=== PATIENT | female | born 1995 | race Caucasian/White ===

== ENCOUNTER 2024-02-03 20:01 | Emergency (ER) | payer OTHER, SELFPAY ==
[2024-02-03 20:19] VITALS: BP 127/82
[2024-02-03 20:44] LABS: % Basophils 0.7 % (0-2); % Eosinophils 5.4 % (0-6); % Immature Granulocytes 0.6 % (0-0.5); % Lymphocytes 45.2 % (20.5-51.1); % Neutrophils 40.1 % (42.2-75.2); Absolute Eosinophils 0.3 10^3/uL (0-0.7); Absolute Lymphocytes 2.4 10^3/uL (1.2-3.4); Absolute Monocytes 0.4 10^3/uL (0.1-0.6); Absolute Neutrophils 2.2 10^3/uL (1.4-6.5); Hematocrit 33.7 % (37.0-47.0); Mean Corp Hgb Conc. 32.6 g/dL (33.0-37.0); Mean Corpuscular Hgb 26.6 pg (27.0-31.0); Mean Corpuscular Volume 81.6 fL (81.0-99.0); Mean Platelet Volume 10.6 fL (7.4-10.4); Nucleated Red Blood Cells % 0 %; Platelet Count 223 10^3/uL (130-400); Red Blood Cell Count 4.13 10^6/uL (4.20-5.40); Red Cell Dist. Width 16.8 % (11.5-14.5); White Blood Cell Count 5.4 10^3/uL (4.8-10.8)
[2024-02-03 20:52] LABS: HCG, Serum Qualitative Screen Negative
[2024-02-03 21:01] LABS: ALT (SGPT) 18 U/L (0-35); AST (SGOT) 31 U/L (14-36); Albumin 4.8 g/dl (3.5-5.0); Alkaline Phosphatase 115 U/L (38-126); Blood Urea Nitrogen 15 mg/dl (7-17); Calcium 10.2 mg/dl (8.4-10.2); Carbon Dioxide 26 mmol/L (22-30); Chloride 98 mmol/L (98-107); Glucose 110 mg/dl (70-99); Potassium 4.2 mmol/L (3.5-5.1); Sodium 134 mmol/L (135-145); Total Bilirubin 0.3 mg/dl (0.2-1.3); Total Protein 7.8 g/dl (6.3-8.2); eGFR > 60.00
--- NOTE | 2024-02-03 22:31 | ED.GENMED ---
History of Present Illness
General
Chief Complaint: Dental Problem
Source: patient
Exam Limitations: none
Time Seen by Provider: 02/03/24 22:20
Travel History
Have you had any contact with someone who has COVID-19?: No
Do you have any symptoms of coronavirus? Fever > 100 degrees, chills, cough, shortness of breath, sore throat, loss of taste or smell, muscle aches, or headache?: No
History of Present Illness
History of Present Illness:
This is a 28 year old female that comes in with c/o facial swelling. States that she started on with a sore mouth. States that on Friday she started with left sided facial swelling. States that the swelling was worse on Friday and
involved her eye. States that she went to on Friday and was given Augmentin. State that she called the PCP today as she is still swollen but it has gone down considerable. States that she has pain under the left cheek bone and it hurts when she
bits down. Patient took Ibuprofen at 7pm. States that she has had some nausea and diarrhea. Denies any fever, chills, chest pain, SOB, abd pain, vomiting, headache, dizziness, urinary burning.
Past History
Past History
ED Past Medical History: Arrthythmia (Torsades), Asthma, Psychiatric (Anxiety, Depression) and Other (Concussion, Pancreatitis, history of Substance abuse, )
ED Past Surgical History: Gynecological () and Other (Pancreatic stent)
Social History
Tobacco: Smoker
Alcohol: None
Drug: Marijuana
Personal: Single
Living: with family
Review of Systems
Review of Systems
All Other Systems: ROS reviewed and negative except as documented in HPI and ROS
Constitutional: Reports no symptoms; Denies fever or chills
EENT: Reports mouth pain (left sided with facial swelling)
Respiratory: Reports no symptoms; Denies cough or trouble breathing
Cardiac: Reports no symptoms
ABD/GI: Reports nausea and diarrhea; Denies abdominal pain or vomiting
: Reports no symptoms; Denies dysuria, frequency or urgency
Musculoskeletal: Reports no symptoms
Skin: Reports no symptoms
Neurological: Reports no symptoms; Denies dizzy or headache
Psychiatric: Reports no symptoms
Phy Exam
General Physical Exam
General Presentation: mild distress
General age: appears stated age
General Skin: warm and dry
General Habitus: normal
General Mental: alert
General Hydration: appears well hydrated
ENT Exam
ENT Exam: TM's normal, pharynx normal, neck supple and other (left sided facial swelling noted on the left cheek bone. Slight redness noted on the upper gum line)
Eye Exam
Eye Exam: EOMI
Cardiovascular Exam
Cardiovascular Exam: regular rate/rhythm, no edema, no murmur and normal peripheral pulses
Pulmonary Exam
Pulmonary Exam: lungs clear, no respiratory distress, no rales, chest non tender, no crackles, no rhonchi, no wheezing and no cough
Gastrointestinal Exam
Gastrointestinal Exam: normal bowel sounds, non tender, soft, no organomegaly, no pulsatile mass and non distended
Musculoskeletal Exam
Musculoskeletal Exam: full ROM and no edema
Skin Exam
Skin Exam: normal color, warm/dry, no rash and no petechia
Psychiatric Exam
Psychiatric Exam: normal mood/affect
Course
Orders/Labs/Results
Orders:
Orders
02/03/24 20:28
[address] Bones w Contrast CT [CT Facial Bones W/ Iv Contrast] Urgent
Comment:
Reason For Exam: left facial swelling infected tooth
02/03/24 20:29
Test Result ONCE
02/03/24 20:36
CMP [Comprehensive Metabolic Panel] Urgent
Complete Blood Count/With Diff Urgent
HCG, Serum Qualitative Screen Urgent
02/03/24 22:31
Acetaminophen [Tylenol] 1,000 mg PO NOW STA
Abnormal Lab Results
02/03/24
20:36
RBC 4.13 L 10^6/uL
(4.20-5.40)
Hgb 11.0 L g/dL
(12.0-16.0)
Hct 33.7 L %
(37.0-47.0)
MCH 26.6 L pg
(27.0-31.0)
MCHC 32.6 L g/dL
(33.0-37.0)
RDW 16.8 H %
(11.5-14.5)
MPV 10.6 H fL
(7.4-10.4)
Immature Gran % 0.6 H %
(0-0.5)
Neutrophils % 40.1 L %
(42.2-75.2)
Sodium 134 L mmol/L
(135-145)
Glucose 110 H mg/dl
(70-99)
02/03/24 20:36
02/03/24 20:36
H/H slightly low. Glucose nonfasting. HCG negative
Vital Signs
Initial and Last Documented VS:
Initial Vital Signs
Temp Pulse Resp BP Pulse Ox
98.7 F 81 18 127/82 100
02/03/24 20:19 02/03/24 20:19 02/03/24 20:19 02/03/24 20:19 02/03/24 20:19
Last Documented Vital Signs
Temp Pulse Resp BP Pulse Ox
98.7 F 80 18 146/89 99
02/03/24 20:19 02/03/24 23:05 02/03/24 23:05 02/03/24 23:05 02/03/24 23:05
MDM/Problems Addressed
Differential Diagnosis Includes:
Dental abscess, Sinus infection
MDM/Problems Addressed:
This is a 28 year old female that comes in with c/o left sided facial swelling. States that this started on [place] and got worse over the weekend. Patient was seen at and started on antibiotics. States that the swelling has gone down but she has
pain and still slight swelling. States that her PCP wants her to have a CT scan.
Will check labs and get CT scan.
Back into see patient. Explained that there is no abscess but she has dental caries in 4 of her teeth. Explained that she needs to see the dentist to have fillings. Explained that she can continue with the antibiotics as directed if she would like.
Alternate with Tylenol and Ibuprofen for pain. Return with any concerns.
Chronic conditions affecting care:
NA
Acute Exacerbation and/or Progression of Chronic Illness:
NA
*Radiology
Radiology exam reviewed: radiology read reviewed (facial CT-Dental caries s described. No absces formation identified. )
*Pulse Oximetry
Patient hypoxic: no
*EKG
Interpreted by ED Provider?: NA
Rate: EKG- N/A
*Stave Saw Operator Interpretation
Rate: Stave Saw Operator- N/A
*Critical Care Note
Total Time (30-74mins, 75-104mins- exclusive of procedures): Not Applicable
ED Attending Note
-
Portions of this chart may have been created with voice recognition software.� Occasional wrong word or��sound alike� substitutions may have occurred due to the inherent limitations of voice recognition software.
Discharge Plan
Departure
Patient Disposition: Home (Routine Discharge)
Date of Disposition: 02/03/24
Time of Disposition: 23:48
Patient with high blood pressure during this ER visit?: Yes
Condition: Good
Covid-19: Not Applicable
Discharge Problem:
Dental caries
Instructions: Dental Pain (DC), BLOOD PRESSURE
Prescriptions:
No Action
magnesium oxide 500 mg Tablet
500 mg PO DAILY Qty: 30 0RF
acetaminophen 325 mg Tablet
650 mg PO Q6HPRN PRN (Reason: mild pain/ fever>100.5F) Qty: 90 0RF
pantoprazole 40 mg Tablet,Delayed Release (Dr/Ec)
40 mg PO BID Qty: 60 0RF
gabapentin 300 mg Capsule
300 mg PO TID Qty: 90 0RF
metoprolol succinate 25 mg Tablet Extended Release 24 Hr
25 mg PO DAILY Qty: 30 0RF
sertraline 25 mg Tablet
25 mg PO DAILY Qty: 30 0RF
Referrals:
Digna Burton DO [Family Provider] -
Activity Restrictions/Additional Instructions:
As discussed, your blood work is normal. Your CT shows that you have no abscess but you have dental caries in 4 of your teeth. Please follow up with your dentist for further treatment. You may use Tylenol and Ibuprofen for pain. Ice to help with
pain control. IF YOU HAVE ANY OTHER CONCERNS PLEASE RETURN TO THE EMERGENCY ROOM.
Interventions
Interventions:
*Risk Screen - Suicide Last Done: 02/03/24 20:19
*General Assessment Last Done: 02/03/24 20:19
*Neglect/Abuse Screening Last Done: 02/03/24 20:19
ED- Fall Risk Assessment Last Done: 02/03/24 23:13
*ED COVID-19 Vaccine History Last Done: 02/03/24 20:19
Discharge Date and Time
Print Language: WOLOF
[2024-02-03] MEDS: TYLENOL 1000 MG PO (22:52)
[2024-02-03 23:05] VITALS: BP 146/89
[2024-02-03 23:08] VITALS: BMI 31.3
[2024-02-04] VITALS: BP 138/68
== END 2024-02-04 00:02 | disposition home or self-care (01) ==
LOC: EMR 20:01
PROVIDERS: Emergency Medicine; EMERGENCY PHYSICIAN Emergency Medicine; FAMILY PHYSICIAN Family Medicine
DX: K02.9 Dental caries, unspecified (principal); I47.21 Torsades de pointes; J45.909 Unspecified asthma, uncomplicated; F41.8 Other specified anxiety disorders; F17.200 Nicotine dependence, unspecified, uncomplicated
CPT/HCPCS: 99284; 70487; 80053; 84703; 85025; Q9967

== ENCOUNTER → 2024-03-16 09:29 | Outpatient (REF) | payer OTHER, SELFPAY | LOC: HWRAD 09:29 | PROVIDERS: ATTENDING PHYSICIAN Internal Medicine Gastroenterology; FAMILY PHYSICIAN Family Medicine | DX: R10.9 Unspecified abdominal pain (principal) | CPT/HCPCS: 74160; Q9967 ==

== ENCOUNTER 2024-04-22 06:35 | Day surgery (SDC) | payer OTHER, SELFPAY ==
[2024-04-22] VITALS (16 sets, daily range): BP systolic 112–176; BP diastolic 77–138; BMI 27.3
[2024-04-22] MEDS: TYLENOL 1000 MG PO (16:09)
--- NOTE | 2024-04-22 17:31 | HPS.HSE ---
Family Physician
-
Family Physician: NO INTERVIEW UNKNOWN
Chief Complaint
-
abd pain/nausea post EGD
History of Present Illness
Patient is a 28F with past medical history of essential HTN, neuropathy, GERD, Depression, necrotizing pancreatitis with pancreatic duct stenting, alcohol abuse, h/o marijuana use, h/o DVT was brought in for elective EGD and pancreatic duct stent
removal. Post procedure patient is having significant abdominal pain and nausea. Patient was seen in recovery room and was in intractable pain, patient was having diffuse upper abdominal pain with nausea. No vomiting. Patient was tearful from
pain. Abdominal examination relatively benign at this point. Patient denies any other ongoing problems of shortness of breath/chest pain/palpitation.
Patient being admitted to hospital for overnight monitoring and pain control
Medical History
Past Medical History
Past Medical History: Reports Other
Additional Past Medical History:
essential HTN, neuropathy, GERD, Depression, necrotizing pancreatitis with pancreatic duct stenting, alcohol abuse, h/o marijuana use, h/o DVT
Past Surgical History: Reports Other
Social History
Tobacco: Non-smoker
Alcohol: Occasional
Drug: Marijuana
Family History
Family History: Not pertinent
Allergies / Home Medications
Allergies reflects when Allergies were last updated in [facility].
Home Medications with original date entered in [employer]
Allergy/Medication List:
Allergies
Allergy/AdvReac Type Severity Reaction Status Date / Time
No Known Allergies Allergy Verified 04/22/24 13:49
Home Medications
acetaminophen 325 mg tablet 650 mg (2 x 325 mg) PO Q6HPRN PRN mild pain/ fever>100.5F #90 tabs 06/24/23
magnesium oxide 500 mg PO DAILY #30 tabs 06/24/23
metoprolol succinate 25 mg tablet,extended release 24 hr 25 mg PO DAILY #30 tabs 06/24/23
pantoprazole 40 mg tablet,delayed release 40 mg PO BID #60 tabs 06/24/23
sertraline 25 mg tablet 25 mg PO DAILY #30 tabs 08/08/23
gabapentin 300 mg capsule 600 mg PO TID 04/22/24
ebpywthgfxwf-bcxvy-cpnroemmhij tablet 1 tab PO 04/22/24
Review of Systems
-
A 12 point ROS was completed and negative except as noted: Yes
Physical Exam
Vital Signs
Vital Signs
Temp Pulse Resp BP Pulse Ox
98.0 F 96 17 138/93 97
04/22/24 15:19 04/22/24 16:15 04/22/24 16:15 04/22/24 16:15 04/22/24 16:15
Physical Exam
General: Appears in Distress (Pain) and Pain
HEENT: Moist mucous membranes and Atraumatic
Respiratory: Clear
Cardiac: S1/S2 and Regular Rhythm; No Murmur or Rub
GI: Soft, Non Distended, Normal Bowel Sounds and Tender (upper abd); No Organomegaly
Skin: No Rash
Neuro: Awake, Alert, Oriented and Nonfocal/grossly intact
Psych: Anxious
Impression/Plan
-
EGD 04/22
The examined esophagus was normal. No gross lesions were noted in the entire examined stomach. A previously placed pancreatic stent was seen in the ampulla. Stent removal was accomplished with a snare.
The duodenal bulb, first portion of the duodenum and second portion of the duodenum were normal.

1. Intractable abdominal pain
Nausea/vomiting
-Post EGD patient having intractable abdominal pain and distress and tearful
-Abdominal examination relatively benign except tenderness in upper abdomen, no guarding
-Emergent lab check CBC/CMP/lipase ordered
-Patient with history of recurrent pancreatitis and with pancreatic ductal stent removal today maintain n.p.o. and on IV fluids
-CT abdomen pelvis with IV contrast ordered
-Patient started on IV Dilaudid for pain control, hold dose for excessive sedation
-Monitor on telemetry overnight
-Admit under observation
-GI Consulted to follow
2. History of necrotizing pancreatitis
History of pancreatic duct stenting
-Removed today by interventional GI
-f/u CT a/p
3. Essential HTN
-maintain on metoprolol daily
History of alcohol use disorder
History of depression versus
History of substance use with amphetamine/morphine
History of ventricular tachycardia/torsades
DVT PPX -scd
Full code
Total time spent : 76 mins
I personally saw and examined the patient.
I have reviewed all diagnostic interpretations and treatment plans as written.
Time includes patient management by me, time spent at the patients bedside, time to review lab and imaging results, discussing patient care, documentation in the medical record, and time spent with the family or caregiver and discussing care plan
with RN/Consultants.
[2024-04-22] MEDS: DILAUDID 0.5 MG IV ×2 (17:44→21:07)
[2024-04-22 18:06] LABS: Hematocrit 32.4 % (37.0-47.0); Hemoglobin 11.2 g/dL (12.0-16.0); Mean Corp Hgb Conc. 34.6 g/dL (33.0-37.0); Mean Corpuscular Hgb 28.4 pg (27.0-31.0); Mean Platelet Volume 10.5 fL (7.4-10.4); Platelet Count 232 10^3/uL (130-400); Red Blood Cell Count 3.95 10^6/uL (4.20-5.40); Red Cell Dist. Width 15.3 % (11.5-14.5); White Blood Cell Count 7.1 10^3/uL (4.8-10.8)
--- NOTE | 2024-04-22 18:07 | PTCARENOTE ---
Pt continued to cry, report pain and intermittent nausea. Reached out to Dr. Forde who relayed information to Dr. Crocker who came to see pt. Orders pt MAR. Pt repositioned. Pt's mother @ bedside, stepped out to make phone calls at this time. Pt quietly
resting, continues on monitor, awaiting transfer to .
[2024-04-22 18:17] LABS: ALT (SGPT) 25 U/L (0-35); AST (SGOT) 46 U/L (14-36); Albumin 4.7 g/dl (3.5-5.0); Alkaline Phosphatase 145 U/L (38-126); Blood Urea Nitrogen 9 mg/dl (7-17); Calcium 9.7 mg/dl (8.4-10.2); Carbon Dioxide 23 mmol/L (22-30); Chloride 104 mmol/L (98-107); Estimated Creatinine Clearance 122 ml/min; Glucose 110 mg/dl (70-99); Lipase 779 U/L (23-300); Potassium 4.2 mmol/L (3.5-5.1); Sodium 137 mmol/L (135-145); Total Bilirubin 0.4 mg/dl (0.2-1.3); Total Protein 7.4 g/dl (6.3-8.2); eGFR > 60.00
--- NOTE | 2024-04-22 18:35 | PTCARENOTE ---
Pt continues to vomit, reaching out to hospitalist. Emesis is bilious/clear.
--- NOTE | 2024-04-22 18:58 | PTCARENOTE ---
Report called to [facility], departing shortly for 2S
[2024-04-22] MEDS: ZOFRAN 4 MG IV ×2 (19:10→23:27)
--- NOTE | 2024-04-22 19:52 | PTCARENOTE ---
Transferred on monitor with her mother at bedside.Arrived to unit, her nurse Leslie Esparza to receive her. Pt stated she felt shaky, pt's mother mentioned history of Prolonged (and wasn't she exactly what, said maybe QT), passed this information on
to RN and provider. Pt continued with vomiting during transport and upon arrival. Pt's belongs transferred with pt.
[2024-04-22] MEDS: ATIVAN 1 MG IV (20:13)
[2024-04-22] MEDS: COMPAZINE 10 MG IV (20:13)
[2024-04-22 20:31] LABS: HCG, Serum Qualitative Screen Negative
[2024-04-22] MEDS: NEURONTIN PO (21:53)
[2024-04-22] MEDS: NSS (PRESERVATIVE FREE) 0.5 ML IV (21:53)
[2024-04-22] MEDS: PHENERGAN 50.25 MG IV (21:53)
[2024-04-22] MEDS: NSS IV (21:58)
[2024-04-23] MEDS: DILAUDID 0.5 MG IV ×4 (00:07→09:27)
[2024-04-23] MEDS: TIGAN 200 MG IM (00:21)
--- NOTE | 2024-04-23 02:12 | PTCARENOTE ---
Pt. arrived to from GI lab at [address] over. Pt. helped to stand and pivot to room bed at which point pt. stated she felt like something was 'wrong' and stated 'I think I'm going to have a seizure.' No seizure hx noted in
chart and pt's mother stated pt. had a seizure during a prior visit to the ER and that the staff told her she had a 'long QT'. Pt. able to safely pivot to room bed without incident. Placed on tele at time of arrival. House DRIVER HELPER consulted and stat IV
Ativan and Compazine given - see MAR. Pt. then asking to sit in the shower stating that's what she does at home to help with anxiety. Pt. assisted to shower and felt more calm after. Around 2129 pt. states nausea was coming back and started vomiting
bile. House DRIVER HELPER contacted and IV Phenergan given with temporary relief of nausea - see MAR. Pt. able to sleep for a few hours before calling at 2330 to say nausea had resumed along with uncontrollable retching. House DRIVER HELPER in to see pt. at bedside and
IM Tigan given - see MAR. Pt. sleeping at time of writing. Will continue to monitor.
[2024-04-23 03:05] VITALS: BP 160/96
[2024-04-23] MEDS: NSS 1000 IV ×3 (03:09→20:45)
[2024-04-23 05:51] LABS: Hematocrit 31.5 % (37.0-47.0); Hemoglobin 10.4 g/dL (12.0-16.0); Mean Corpuscular Hgb 28.5 pg (27.0-31.0); Mean Corpuscular Volume 86.3 fL (81.0-99.0); Mean Platelet Volume 11.1 fL (7.4-10.4); Platelet Count 186 10^3/uL (130-400); Red Blood Cell Count 3.65 10^6/uL (4.20-5.40)
[2024-04-23 06:17] LABS: ALT (SGPT) 20 U/L (0-35); AST (SGOT) 28 U/L (14-36); Albumin 3.9 g/dl (3.5-5.0); Alkaline Phosphatase 132 U/L (38-126); Blood Urea Nitrogen 9 mg/dl (7-17); Calcium 9.1 mg/dl (8.4-10.2); Carbon Dioxide 21 mmol/L (22-30); Chloride 105 mmol/L (98-107); Estimated Creatinine Clearance 122 ml/min; Glucose 135 mg/dl (70-99); Sodium 136 mmol/L (135-145); Total Bilirubin 0.5 mg/dl (0.2-1.3); Total Protein 6.4 g/dl (6.3-8.2); eGFR > 60.00
[2024-04-23 07:20] VITALS: BP 170/105
[2024-04-23 08:28] LABS: Lipase 322 U/L (23-300)
[2024-04-23] MEDS: TOPROL XL 25 MG PO (08:39)
[2024-04-23] MEDS: NSS (PRESERVATIVE FREE) 10 ML IV (08:39)
[2024-04-23] MEDS: ZOLOFT 25 MG PO (08:39)
[2024-04-23] MEDS: NEURONTIN 600 MG PO ×3 (08:39→22:18)
[2024-04-23] MEDS: APRESOLINE 10 MG IV (08:39)
[2024-04-23] MEDS: PROTONIX IV 40 MG IV (08:39)
[2024-04-23] MEDS: MAGNESIUM OXIDE 500 MG PO (08:39)
[2024-04-23] MEDS: DUONEB 3 ML INH ×2 (09:05→22:57)
[2024-04-23] MEDS: ROXICODONE 10 MG PO ×3 (11:09→22:22)
[2024-04-23 11:15] VITALS: BP 160/86
--- NOTE | 2024-04-23 11:16 | CON.GI ---
Consultation
-
Date/Time Consultation Requested: 04/23/2024
Date/Time Consultation Performed: 04/23/2024
Performing Provider: Fortino Forde
Reason for Consultation: abdominal pain post procedure
Medical History
Chief Complaint / HPI
Chief Complaint: abdominal pain post procedure
History of Present Illness:
The patient is a 28 year old female w/ h/o alcohol induced necrotizing pancreatitis complicated by the pancreatic ductal disruption requiring PD stenting 07/11, alcohol abuse, asthma, occasional marijuana use, h/o DVT 2/2 PICC line s/p Xarelto, who
was admitted after elective endo procedure. Pt had EGD yesterday for indwelling PD stent removal; she developed severe epigastric/LUQ abdominal pain post procedure. She was seen as f/u OV on 02/2024 for evaluation of abdominal pain, during which
she had relapsed into drinking alcohol. CT of abdo as OP showed inflammatory stranding in the tail portion of pancreas w/o PFC, and pt was managed at home. Her pain eventually subsided. The CT also showed indwelling PD stent (which was not
reported from previous MRI) and had elective EGD yesterday for removal.
Past Medical History
Past Medical History: GERD, HTN and Other
Past Surgical History: Other
Social History
Tobacco: Non-Smoker
Alcohol: Binge Drinker
Allergies / Home Medications
Allergy/AdvReac Type Severity Reaction Status Date / Time
ondansetron AdvReac Severe Nausea / Verified 04/23/24 06:36
Vomiting
�Medication �Instructions �Recorded
acetaminophen 325 mg tablet 650 mg (2 x 325 mg) PO Q6HPRN PRN 06/24/23
mild pain/ fever>100.5F #90 tabs
magnesium oxide 500 mg PO DAILY #30 tabs 06/24/23
metoprolol succinate 25 mg 25 mg PO DAILY #30 tabs 06/24/23
tablet,extended release 24 hr
pantoprazole 40 mg tablet,delayed 40 mg PO BID #60 tabs 06/24/23
release
sertraline 25 mg tablet 25 mg PO DAILY #30 tabs 08/08/23
gabapentin 300 mg capsule 600 mg PO TID 04/22/24
qajnvharmjpw-nuzls-kjzfadousgi 1 tab PO DAILY 04/22/24
tablet
Review of Systems
Vital Signs
Temp Pulse Resp BP Pulse Ox
98.0 F 101 22 170/105 100
04/23/24 07:20 04/23/24 09:09 04/23/24 09:09 04/23/24 08:39 04/23/24 09:09
Physical Exam
Exam
General: Well Developed and Well Nourished
HEENT: Normocephalic
Respiratory: Clear
Cardiac: S1/S2
GI: Soft, Non Distended, Normal Bowel Sounds and Tender
Results
WBC 10.0 10^3/uL (4.8-10.8) 04/23/24 04:51
Hgb 10.4 g/dL (12.0-16.0) L 04/23/24 04:51
Hct 31.5 % (37.0-47.0) L 04/23/24 04:51
MCV 86.3 fL (81.0-99.0) 04/23/24 04:51
Plt Count 186 10^3/uL (130-400) 04/23/24 04:51
Sodium 136 mmol/L (135-145) 04/23/24 04:51
Potassium 4.0 mmol/L (3.5-5.1) 04/23/24 04:51
Chloride 105 mmol/L (98-107) 04/23/24 04:51
Carbon Dioxide 21 mmol/L (22-30) L 04/23/24 04:51
BUN 9 mg/dl (7-17) 04/23/24 04:51
Creatinine 0.6 mg/dL (0.6-1.0) 04/23/24 04:51
Calcium 9.1 mg/dl (8.4-10.2) 04/23/24 04:51
Total Bilirubin 0.5 mg/dl (0.2-1.3) 04/23/24 04:51
AST 28 U/L (14-36) 04/23/24 04:51
ALT 20 U/L (0-35) 04/23/24 04:51
Alkaline Phosphatase 132 U/L (38-126) H 04/23/24 04:51
Lipase 322 U/L (23-300) H 04/23/24 04:51
Diagnostic Image Results:
Prior GI Procedures:
EGD:
Colonoscopy:
Assessment / Plan
-
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
stent removal.
Impression / Rec:
1. Abdominal pain - she had CT abd/pel o/n which showed peripancreatic stranding predominantly in tail region which appears worse compared to prev scan on 02/2024. Lipase elevated but < 3 x ULN. She had relapse of alcohol in 02/2024 with abdominal
pain, CT done at that time showed pancreatitis changes in the tail of panc. The elective EGD performed yesterday was simple PD stent removal, unsure if this triggered recurrent acute panc vs ? ongoing inflammation since 02/2024. No peripancreatic
fluid collection. Pain is persistent, vomited few times o/n, none this am. Recommend continued supportive care. Will advance to [facility] today. Will follow.
Total Time Spent with Patient (in minutes): 55
-
-
Thank you for consultation and allowing me to participate in the patient's care. Please call the reconciliation accountant GI physician during the after hours with any questions or concerns.
--- NOTE | 2024-04-23 12:21 | W.PN.HOSP.TC ---
Today's Communication/Plan
-
continue supportive care
see note
Diet per GI
Assessment / Plan
Assessment / Plan
EGD 04/22
The examined esophagus was normal. No gross lesions were noted in the entire examined stomach. A previously placed pancreatic stent was seen in the ampulla. Stent removal was accomplished with a snare.
The duodenal bulb, first portion of the duodenum and second portion of the duodenum were normal.

1. Acute pancreatitis
Intractable abdominal pain
Nausea/vomiting -Improving
-Post EGD patient having intractable abdominal pain and distress and tearful
-Abdominal examination relatively benign except tenderness in upper abdomen, no guarding
-CT abdomen pelvis with IV contrast showing mild pancreatitis change and new from old known findings,.
-pain medication adjusted to oral oxycodone and prn Dilaudid for breakthrough
-Lipase down from 780 > 322.
-GI following and recommended medical management.
-maintain on CL diet and IVF
2. History of necrotizing pancreatitis
History of pancreatic duct stenting
-Removed today by interventional GI
-f/u CT a/p
3. Essential HTN
-maintain on metoprolol daily
History of alcohol use disorder
History of depression versus
History of substance use with amphetamine/morphine
History of ventricular tachycardia/torsades
DVT PPX -scd
Full code
Anticipated Discharge: Within 24 hours
Subjective/Interval History
-
Date of Service: April 23, 2024
was having lot of pain in the night
lot of nausea/vomiting in the night and which resovled with IM tigan, now better in morning
Objective Data
-
Labs:
Laboratory Results
04/23/24
04:51
WBC 10.0
Hgb 10.4 L
Hct 31.5 L
Plt Count 186
Sodium 136
Potassium 4.0
Chloride 105
Carbon Dioxide 21 L
BUN 9
Creatinine 0.6
Glucose 135 H
Calcium 9.1
Total Bilirubin 0.5
AST 28
ALT 20
Alkaline Phosphatase 132 H
Vital Signs:
Vital Signs
Temp Pulse Resp BP Pulse Ox
97.7 F 106 18 160/86 98
04/23/24 11:15 04/23/24 11:15 04/23/24 11:15 04/23/24 11:15 04/23/24 11:15
Review of Systems
-
Respiratory: Reports No Symptoms
Cardiac: Reports No Symptoms
Abdomen/GI: Reports Abdominal Pain; Denies Nausea or Vomiting
Physical Exam
-
General: No Apparent Distress and Comfortable
HEENT: Negative Oxygen
Respiratory: Wheezes
Cardiac: Regular Rhythm and S1/S2; Negative Murmur or Rub
GI: Soft and Tender; Negative Normal Bowel Sounds
Musculoskeletal: No Edema
Neuro: Awake, Alert, Oriented, No Motor Deficits and Nonfocal/Grossly Intact
Psych: Calm
[2024-04-23] MEDS: TYLENOL 650 MG PO (13:02)
[2024-04-23] MEDS: DILAUDID 0.25 MG IV (14:35)
[2024-04-23 15:20] VITALS: BP 144/88
--- NOTE | 2024-04-23 17:24 | CM ---
met with patient at bedside.patient lives with her mother,and other family members in a house with 2 steps to enter,her bed and bath is on second level.she is totally I.her pcp is dr ani sharma and [facility]
[place]she has never had a vn or been to ip rehab.
patient with a hx of substance and alcohol abuse is adm with pancreatitis.her pancreatic duct stent has been removed by IR.she is npo .on ivf.plan is dc home with no needs.
[2024-04-23 19:39] VITALS: BP 169/103
[2024-04-23] MEDS: MELATONIN 5 MG PO (23:17)
[2024-04-23 23:25] VITALS: BP 145/80
[2024-04-24] MEDS: ROXICODONE 10 MG PO ×5 (02:46→20:24)
[2024-04-24 03:37] VITALS: BP 143/91
[2024-04-24 06:14] LABS: Hematocrit 31.7 % (37.0-47.0); Hemoglobin 10.4 g/dL (12.0-16.0); Mean Corp Hgb Conc. 32.8 g/dL (33.0-37.0); Mean Corpuscular Hgb 28.4 pg (27.0-31.0); Mean Corpuscular Volume 86.6 fL (81.0-99.0); Mean Platelet Volume 10.9 fL (7.4-10.4); Platelet Count 144 10^3/uL (130-400); Red Blood Cell Count 3.66 10^6/uL (4.20-5.40); Red Cell Dist. Width 15.2 % (11.5-14.5); White Blood Cell Count 6.7 10^3/uL (4.8-10.8)
[2024-04-24 06:40] LABS: ALT (SGPT) 15 U/L (0-35); AST (SGOT) 19 U/L (14-36); Albumin 3.9 g/dl (3.5-5.0); Alkaline Phosphatase 110 U/L (38-126); Blood Urea Nitrogen 5 mg/dl (7-17); Calcium 9.2 mg/dl (8.4-10.2); Carbon Dioxide 24 mmol/L (22-30); Chloride 106 mmol/L (98-107); Estimated Creatinine Clearance 122 ml/min; Glucose 124 mg/dl (70-99); Potassium 3.8 mmol/L (3.5-5.1); Sodium 138 mmol/L (135-145); Total Bilirubin 0.5 mg/dl (0.2-1.3); Total Protein 6.3 g/dl (6.3-8.2); eGFR > 60.00
[2024-04-24 07:19] VITALS: BP 140/103
[2024-04-24] MEDS: MAGNESIUM OXIDE 500 MG PO (07:21)
[2024-04-24] MEDS: ZOLOFT 25 MG PO (07:21)
[2024-04-24] MEDS: PROTONIX IV 40 MG IV (07:21)
[2024-04-24] MEDS: TOPROL XL 25 MG PO (07:21)
[2024-04-24] MEDS: NEURONTIN 600 MG PO ×3 (07:21→21:16)
[2024-04-24] MEDS: NSS (PRESERVATIVE FREE) 10 ML IV (07:21)
[2024-04-24 08:15] LABS: Lipase 157 U/L (23-300)
--- NOTE | 2024-04-24 11:02 | W.PN.HOSP.TC ---
Today's Communication/Plan
-
advance diet
continue pain meds
possible d/c tomorrow
Assessment / Plan
Assessment / Plan
EGD 04/22
The examined esophagus was normal. No gross lesions were noted in the entire examined stomach. A previously placed pancreatic stent was seen in the ampulla. Stent removal was accomplished with a snare.
The duodenal bulb, first portion of the duodenum and second portion of the duodenum were normal.

1. Acute pancreatitis - Improved
Intractable abdominal pain - Improved
Nausea/vomiting -Improved
-Post EGD patient having intractable abdominal pain and distress and tearful
-Abdominal examination relatively benign except tenderness in upper abdomen, no guarding
-CT abdomen pelvis with IV contrast showing mild pancreatitis change and new from old known findings,.
-pain medication adjusted to oral oxycodone and prn Dilaudid for breakthrough
-Lipase down from 780 > 322 > 150
-GI following and recommended medical management.
-diet advanced to [place] diet and possibly LF tomorrow if able to tolerate
-advised patient to establish care with pain specialist if continues to have problem with on/off pain
2. History of necrotizing pancreatitis
History of pancreatic duct stenting
-Removed today by interventional GI
-f/u CT a/p
3. Essential HTN
-maintain on metoprolol daily
History of alcohol use disorder
History of depression versus
History of substance use with amphetamine/morphine
History of ventricular tachycardia/torsades
DVT PPX -scd
Full code
Anticipated Discharge: Within 24 hours
Subjective/Interval History
-
Date of Service: April 24, 2024
abd pain is better, no completely resolved
some nausea
no vomiting
on/off diarrhea
Objective Data
-
Labs:
Laboratory Results
04/24/24
05:51
WBC 6.7
Hgb 10.4 L
Hct 31.7 L
Plt Count 144 D
Sodium 138
Potassium 3.8
Chloride 106
Carbon Dioxide 24
BUN 5 L
Creatinine 0.6
Glucose 124 H
Calcium 9.2
Total Bilirubin 0.5
AST 19
ALT 15
Alkaline Phosphatase 110
Vital Signs:
Vital Signs
Temp Pulse Resp BP Pulse Ox
98.1 F 85 17 140/103 96
04/24/24 07:19 04/24/24 07:21 04/24/24 07:19 04/24/24 07:21 04/24/24 07:19
I&O
04/23/24 04/24/24 04/25/24
06:59 06:59 06:59
Intake Total 4614 / 4614
Balance 4614 / 4614
Review of Systems
-
Respiratory: Reports No Symptoms
Cardiac: Reports No Symptoms
Abdomen/GI: Reports Abdominal Pain, Nausea and Diarrhea; Denies Vomiting
Physical Exam
-
General: No Apparent Distress and Comfortable
HEENT: Negative Oxygen
Respiratory: Wheezes
Cardiac: Regular Rhythm and S1/S2; Negative Murmur or Rub
GI: Soft and Tender; Negative Normal Bowel Sounds
Musculoskeletal: No Edema
Neuro: Awake, Alert, Oriented, No Motor Deficits and Nonfocal/Grossly Intact
Psych: Calm
[2024-04-24 11:20] VITALS: BP 143/99
--- NOTE | 2024-04-24 11:26 | W.PN.GI.CBS2 ---
Today's Communication / Plan
-
agree with FLD, possible d/c tomorrow.
Assessment / Plan
-
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
stent removal.
Impression / Rec:
1. Abdominal pain - clinically improving, pain is improving and tolerated CLD, denies vomiting. Agree with advancing diet to FLD, likely d/c tomorrow. She had CT abd/pel o/n which showed peripancreatic stranding predominantly in tail region which
appears worse compared to prev scan on 02/2024. Lipase elevated but < 3 x ULN. She had relapse of alcohol in 02/2024 with abdominal pain, CT done at that time showed pancreatitis changes in the tail of panc. The elective EGD performed yesterday was
simple PD stent removal, unsure if this triggered recurrent acute panc vs ? ongoing inflammation since 02/2024. No peripancreatic fluid collection. Pain is persistent, vomited few times o/n, none this am. Recommend continued supportive care. Will
advance to CLD today. Will follow.
Total Time Spent with Patient (in minutes): 35
Subjective
Subjective
Date of Service: April 24, 2024
feeling better today, pain improving, denies vomiting, tolerated CLD
Objective
Data Reviewed
Laboratory Data:
Laboratory Results
04/24/24 05:51
04/24/24 05:51
Laboratory Results
Total Bilirubin 0.5 mg/dl (0.2-1.3) 04/24/24 05:51
AST 19 U/L (14-36) 04/24/24 05:51
ALT 15 U/L (0-35) 04/24/24 05:51
Alkaline Phosphatase 110 U/L (38-126) 04/24/24 05:51
Lipase 157 U/L (23-300) 04/24/24 05:51
Vital Signs and I&O:
Vital Signs
Temp Pulse Resp BP Pulse Ox
98.1 F 85 17 140/103 96
04/24/24 07:19 04/24/24 07:21 04/24/24 07:19 04/24/24 07:21 04/24/24 07:19
I&O
04/23/24 04/24/24 04/25/24
06:59 06:59 06:59
Intake Total 4614 / 4614
Balance 4614 / 4614
[2024-04-24 14:57] VITALS: BP 150/104
[2024-04-24] MEDS: DUONEB 3 ML INH (15:23)
[2024-04-24 19:40] VITALS: BP 153/104
[2024-04-24] MEDS: MELATONIN 5 MG PO (23:02)
[2024-04-24 23:18] VITALS: BP 147/100
[2024-04-25] MEDS: ROXICODONE 10 MG PO ×3 (00:49→11:56)
[2024-04-25 03:09] VITALS: BP 151/96
[2024-04-25 06:05] LABS: Hematocrit 27.9 % (37.0-47.0); Hemoglobin 9.6 g/dL (12.0-16.0); Mean Corp Hgb Conc. 34.4 g/dL (33.0-37.0); Mean Corpuscular Hgb 28.9 pg (27.0-31.0); Mean Platelet Volume 11.6 fL (7.4-10.4); Platelet Count 153 10^3/uL (130-400); Red Blood Cell Count 3.32 10^6/uL (4.20-5.40); White Blood Cell Count 4.6 10^3/uL (4.8-10.8)
[2024-04-25 06:24] LABS: ALT (SGPT) 13 U/L (0-35); AST (SGOT) 18 U/L (14-36); Albumin 3.6 g/dl (3.5-5.0); Alkaline Phosphatase 114 U/L (38-126); Blood Urea Nitrogen 3 mg/dl (7-17); Calcium 9.6 mg/dl (8.4-10.2); Carbon Dioxide 22 mmol/L (22-30); Chloride 105 mmol/L (98-107); Estimated Creatinine Clearance 122 ml/min; Glucose 118 mg/dl (70-99); Potassium 3.6 mmol/L (3.5-5.1); Sodium 137 mmol/L (135-145); Total Bilirubin 0.3 mg/dl (0.2-1.3); eGFR > 60.00
[2024-04-25 07:31] VITALS: BP 159/98
[2024-04-25] MEDS: PROTONIX IV 40 MG IV (08:36)
[2024-04-25] MEDS: NSS (PRESERVATIVE FREE) 10 ML IV (08:38)
[2024-04-25] MEDS: NEURONTIN 600 MG PO (08:39)
[2024-04-25] MEDS: ZOLOFT 25 MG PO (08:40)
[2024-04-25] MEDS: TOPROL XL 25 MG PO (08:40)
[2024-04-25] MEDS: MAGNESIUM OXIDE 500 MG PO (08:41)
[2024-04-25] MEDS: ROXICODONE 5 MG PO (08:45)
--- NOTE | 2024-04-25 10:24 | W.PN.HOSP.TC ---
Today's Communication/Plan
-
d/c home if tolerates lunch
Assessment / Plan
Assessment / Plan
EGD 04/22
The examined esophagus was normal. No gross lesions were noted in the entire examined stomach. A previously placed pancreatic stent was seen in the ampulla. Stent removal was accomplished with a snare.
The duodenal bulb, first portion of the duodenum and second portion of the duodenum were normal.

1. Acute pancreatitis - Improved
Intractable abdominal pain - Improved
Nausea/vomiting -Improved
-Post EGD patient having intractable abdominal pain and distress and tearful
-CT abdomen pelvis with IV contrast showing mild pancreatitis change and new from old known findings,.
-Lipase down from 780 > 322 > 150
-GI following and help appreciated.
-advised patient to establish care with pain specialist if continues to have problem with on/off pain
-Advanced diet to LF diet and could be discharged if tolerated diet.
2. History of necrotizing pancreatitis
History of pancreatic duct stenting
-Removed today by interventional GI
-CT a/p report as above
3. Essential HTN
-maintain on metoprolol daily
History of alcohol use disorder
History of depression versus
History of substance use with amphetamine/morphine
History of ventricular tachycardia/torsades
DVT PPX -scd
Full code
Anticipated Discharge: Today
Subjective/Interval History
-
Date of Service: April 25, 2024
no issues overnight
Objective Data
-
Labs:
Laboratory Results
04/25/24
05:32
WBC 4.6 L
Hgb 9.6 L
Hct 27.9 L
Plt Count 153
Sodium 137
Potassium 3.6
Chloride 105
Carbon Dioxide 22
BUN 3 L
Creatinine 0.5 L
Glucose 118 H
Calcium 9.6
Total Bilirubin 0.3
AST 18
ALT 13
Alkaline Phosphatase 114
Vital Signs:
Vital Signs
Temp Pulse Resp BP Pulse Ox
98.2 F 67 18 159/98 99
04/25/24 07:31 04/25/24 07:31 04/25/24 07:31 04/25/24 08:40 04/25/24 08:58
I&O
04/24/24 04/25/24 04/26/24
06:59 06:59 06:59
Intake Total 4614 / 4614 2039
Balance 4614 / 4614 2039
Review of Systems
-
Respiratory: Reports No Symptoms
Cardiac: Reports No Symptoms
Abdomen/GI: Reports Abdominal Pain; Denies Nausea or Vomiting
Physical Exam
-
General: No Apparent Distress and Comfortable
HEENT: Negative Oxygen
GI: Soft, Nontender and Normal Bowel Sounds
Neuro: Awake, Alert, Oriented, No Motor Deficits and Nonfocal/Grossly Intact
Psych: Calm
[2024-04-25 11:29] VITALS: BP 152/100
--- NOTE | 2024-04-25 12:09 | PTCARENOTE ---
TT Dr. Crocker. re:.pt is asking about getting a note to go back to work this week? How many days should she miss. She is fine to p/u Friday. Also she was on Amoxi 500mg TID for 7days for a root canal, she said she took 2days worth before coming in,
should she finish?
per Dr. Crocker can work tomorrow and continue ABT
--- NOTE | 2024-04-25 12:19 | W.PN.GI.CBS2 ---
Today's Communication / Plan
-
if tolerates solid diet, d/c home today
Assessment / Plan
-
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
stent removal.
Impression / Rec:
1. Abdominal pain - feels well, tolerated FLD, can advance to solid diet and if she tolerates, can d/c home today. She had CT abd/pel o/n which showed peripancreatic stranding predominantly in tail region which appears worse compared to prev scan
on 02/2024. Lipase elevated but < 3 x ULN. She had relapse of alcohol in 02/2024 with abdominal pain, CT done at that time showed pancreatitis changes in the tail of panc. The elective EGD performed yesterday was simple PD stent removal, unsure if
this triggered recurrent acute panc vs ? ongoing inflammation since 02/2024. No peripancreatic fluid collection. Pain is persistent, vomited few times o/n, none this am. Recommend continued supportive care. Will advance to CLD today. Will follow.
Total Time Spent with Patient (in minutes): 35
Subjective
Subjective
Date of Service: April 25, 2024
feeling better
Objective
Data Reviewed
Laboratory Data:
Laboratory Results
04/25/24 05:32
04/25/24 05:32
Laboratory Results
Total Bilirubin 0.3 mg/dl (0.2-1.3) 04/25/24 05:32
AST 18 U/L (14-36) 04/25/24 05:32
ALT 13 U/L (0-35) 04/25/24 05:32
Alkaline Phosphatase 114 U/L (38-126) 04/25/24 05:32
Lipase 157 U/L (23-300) 04/24/24 05:51
Vital Signs and I&O:
Vital Signs
Temp Pulse Resp BP Pulse Ox
98.3 F 67 18 152/100 100
04/25/24 11:29 04/25/24 11:29 04/25/24 11:29 04/25/24 11:29 04/25/24 11:29
I&O
04/24/24 04/25/24 04/26/24
06:59 06:59 06:59
Intake Total 4614 / 4614 2039
Balance 4614 / 4614 2039
--- NOTE | 2024-04-25 17:05 | W.DCSUMMARY ---
Discharge Summary
Discharge Data
Date of Admission: 04/22/24
Date of Discharge: 04/25/24
-
Pending Results: No
Hospital Course
Discharging Physician : Dr Case Crocker
Disposition : Home
Primary care physician : Unknown
Principal Discharge diagnosis :
Acute pancreatitis
Post upper endoscopy and pancreatic duct stent removal
Chronic Discharge diagnosis :
History of necrotizing pancreatitis
Essential hypertension
History of alcohol use disorder
History of depression
History of substance use with amphetamine/morphine
History of ventricular tachycardia/torsades
Hospital Course :
Patient is a 28-year-old female with above-mentioned past medical history was admitted to medical floor post EGD for intractable abdominal pain and nausea vomiting. Patient have history of recurrent pancreatitis and necrotizing pancreatitis in
past. Patient had pancreatic duct stent placed in the past which was electively removed on the day of admission. Postprocedure in recovery patient was having intractable abdominal pain with significant nausea and vomiting. Patient was requiring
IV pain medication and was decided to admitted for observation overnight. Lab work showing elevated lipase and there was concern of possibly mild pancreatitis. CT abdomen pelvis was ordered which ruled out any other acute complications. Patient
was treated for pancreatitis episode over next 48 hours and resolved without further complication. Patient was able to tolerate low-fat diet on day of discharge. Patient does have persistent abdominal pain and narcotic prescription was provided at
discharge, patient instructed to follow-up with pain specialist if continues to have pain as patient may have component of chronic pancreatitis and related pain. Clinically there is no proof of chronic pancreatitis at this point yet.
Patient was discharged home after GI clearance.
Important imaging findings :
None
Procedure findings :
None
Discharge Plan
-
Patient Disposition: Home (Routine Discharge)
Discharge Diagnosis/Procedures: Acute pancreatitis
Condition: Fair
Diet: Low Fat
Activity: As tolerated
Driving Restrictions: As prior to admission
Bathing Restrictions: OK to Shower
Activity Restrictions/Additional Instructions:
Please establish care with pain specialist if continue to have chronic pain.
Referrals:
UNKNOWN,NO INTERVIEW [Family Provider] -
Prescriptions:
New
oxycodone 5 mg tablet
5 mg PO Q8H PRN (Reason: Mod sev pain) Qty: 15 0RF
Continued
magnesium oxide 500 mg Tablet
500 mg PO DAILY Qty: 30 0RF
acetaminophen 325 mg Tablet
650 mg PO Q6HPRN PRN (Reason: mild pain/ fever>100.5F) Qty: 90 0RF
pantoprazole 40 mg Tablet,Delayed Release (Dr/Ec)
40 mg PO BID Qty: 60 0RF
metoprolol succinate 25 mg Tablet Extended Release 24 Hr
25 mg PO DAILY Qty: 30 0RF
sertraline 25 mg Tablet
25 mg PO DAILY Qty: 30 0RF
fykachztvbfo-hidag-scfvszofatx Tablet
1 tab PO DAILY
gabapentin 300 mg capsule
600 mg PO TID
Discharge Orders:
Discharge Patient (As Directed); Ordered 04/25/24
Ordered By: Case Crocker
Discharge Date and Time
Discharge Date/Time: 04/25/24 12:55
Print Language: TELUGU
== END 2024-04-25 12:55 | disposition home or self-care (01) ==
LOC: GI 06:35
PROVIDERS: ATTENDING PHYSICIAN Hospitalist; CONSULT PHYSICIAN Internal Medicine Gastroenterology
DX: Z46.59 Encounter for fitting and adjustment of other gastrointestinal appliance and device (principal); K86.89 Other specified diseases of pancreas
CPT/HCPCS: 43247; 74177; 80053; 83690; 84703; 85027; 94640; Q9967

== ENCOUNTER 2024-07-28 13:07 | Emergency (ER) | payer OTHER, SELFPAY ==
[2024-07-28 13:09] VITALS: BP 136/102
[2024-07-28 13:24] VITALS: BMI 27.6
[2024-07-28 13:26] VITALS: BP 138/92
[2024-07-28 13:43] LABS: % Basophils 0.4 % (0-2); % Eosinophils 0.1 % (0-6); % Immature Granulocytes 0.5 % (0-0.5); % Lymphocytes 10.1 % (20.5-51.1); % Monocytes 4.5 % (1.7-9.3); % Neutrophils 84.4 % (42.2-75.2); Absolute Basophils 0.1 10^3/uL (0-0.2); Absolute Immature Granulocytes 0.1 10^3/uL (0-0.05); Absolute Lymphocytes 1.3 10^3/uL (1.2-3.4); Absolute Monocytes 0.6 10^3/uL (0.1-0.6); Absolute Neutrophils 10.8 10^3/uL (1.4-6.5); Hematocrit 36.9 % (37.0-47.0); Hemoglobin 12.9 g/dL (12.0-16.0); Mean Corpuscular Hgb 29.3 pg (27.0-31.0); Mean Corpuscular Volume 83.9 fL (81.0-99.0); Mean Platelet Volume 10.7 fL (7.4-10.4); Nucleated Red Blood Cells % 0 %; Platelet Count 247 10^3/uL (130-400); Red Cell Dist. Width 14.8 % (11.5-14.5); White Blood Cell Count 12.8 10^3/uL (4.8-10.8)
--- NOTE | 2024-07-28 13:46 | ED.GENMED ---
History of Present Illness
General
Chief Complaint: Abdominal Symptoms
Time Seen by Provider: 07/28/24 13:18
History of Present Illness
History of Present Illness:
28-year-old female with history of alcohol induced pancreatitis and long QT syndrome presents to the emergency department for evaluation of abdominal pain, nausea, and vomiting beginning last night. Pain is predominantly upper abdomen. Denies
hematemesis or hematochezia. Denies fevers or chills. Pain feels similar to past episodes of pancreatitis
Past History
Past History
ED Past Medical History: Arrthythmia (Torsades), Asthma, Psychiatric (Anxiety, Depression) and Other (Concussion, Pancreatitis, history of Substance abuse, )
ED Past Surgical History: Gynecological () and Other (Pancreatic stent)
Social History
Tobacco: Smoker
Alcohol: None
Drug: Marijuana
Personal: Single
Living: with family
Review of Systems
Review of Systems
Allergies reviewed?: Yes
All Other Systems: ROS reviewed and negative except as documented in HPI and ROS
Phy Exam
Physical Exam
Physical Exam:
GEN: Ill-appearing, actively vomiting, diaphoretic
HEENT: Oral mucosa moist, no scleral icterus
Cardiac: Regular rate and rhythm, no murmurs
Lung: No respiratory distress, no tachypnea
Abdomen: Moderately tender to the epigastrium and left upper quadrant, negative right upper quadrant tenderness, negative Yepez sign, no rigidity
MSK: No gross deformity or injuries
Skin: Good color, no pallor or jaundice, no rashes
Neuro: AO x3, moves all extremities freely
Psych: Calm, cooperative
Course
Orders/Labs/Results
Orders:
Orders
07/28/24 13:26
Test Result ONCE
07/28/24 13:35
Complete Blood Count/With Diff Urgent
Comprehensive Metabolic Panel Urgent
HCG, Serum Qualitative Screen Urgent
Lipase Urgent
07/28/24 13:45
HYDROmorphone [Dilaudid] 0.5 mg IV NOW STA
Metoclopramide [Reglan] 10 mg IV NOW STA
07/28/24 14:01
CT Abd/Pel (IV only)-DH only Urgent
Comment:
Reason For Exam: epigastric pain h/o pancreatitis
07/28/24 15:31
HYDROmorphone [Dilaudid] 0.5 mg IV NOW STA
Abnormal Lab Results
07/28/24
13:35
WBC 12.8 H 10^3/uL
(4.8-10.8)
Hct 36.9 L %
(37.0-47.0)
RDW 14.8 H %
(11.5-14.5)
MPV 10.7 H fL
(7.4-10.4)
Abs Immat Gran (auto) 0.1 H 10^3/uL
(0-0.05)
Absolute Neuts (auto) 10.8 H 10^3/uL
(1.4-6.5)
Neutrophils % 84.4 H %
(42.2-75.2)
Lymphocytes % 10.1 L %
(20.5-51.1)
Carbon Dioxide 19 L mmol/L
(22-30)
Glucose 197 H mg/dl
(70-99)
Calcium 10.7 H mg/dl
(8.4-10.2)
Total Protein 8.4 H g/dl
(6.3-8.2)
Albumin 5.7 H g/dl
(3.5-5.0)
Lipase 20 L U/L
(23-300)
07/28/24 13:35
07/28/24 13:35
Vital Signs
Initial and Last Documented VS:
Initial Vital Signs
Temp Pulse Resp BP Pulse Ox
99.1 F 68 18 136/102 100
07/28/24 13:09 07/28/24 13:09 07/28/24 13:09 07/28/24 13:09 07/28/24 13:09
Last Documented Vital Signs
Temp Pulse Resp BP Pulse Ox
99.1 F 84 18 129/73 99
07/28/24 13:09 07/28/24 16:18 07/28/24 16:18 07/28/24 16:18 07/28/24 16:18
MDM/Problems Addressed
MDM/Problems Addressed:
Patient's workup is reassuring. Her pain dramatically improved after IV hydromorphone and antiemetics. She was able to tolerate p.o. fluids, scan shows no evidence for pancreatitis. May be biliary colic versus gastritis although she is on a PPI.
Will treat her with Carafate and supportive antiemetics, recommend outpatient GI follow-up. Educated on low-fat diet to avoid further flareup should this be biliary disease
*Critical Care Note
Total Time (30-74mins, 75-104mins- exclusive of procedures): Not Applicable
ED Attending Note
-
Portions of this chart may have been created with voice recognition software.� Occasional wrong word or��sound alike� substitutions may have occurred due to the inherent limitations of voice recognition software.
Discharge Plan
Departure
Patient Disposition: Home (Routine Discharge)
Date of Disposition: 07/28/24
Time of Disposition: 16:14
Patient with high blood pressure during this ER visit?: No
Discharge Problem:
Acute upper abdominal pain
Instructions: Low-fat diet, Abdominal Pain
Prescriptions:
New
metoclopramide HCl [Reglan] 10 mg tablet
10 mg PO Q8HPRN PRN (Reason: nausea and vomiting) Qty: 9 0RF
sucralfate [Carafate] 1 gram tablet
1 g PO AC Qty: 30 0RF
No Action
magnesium oxide 500 mg Tablet
500 mg PO DAILY Qty: 30 0RF
acetaminophen 325 mg Tablet
650 mg PO Q6HPRN PRN (Reason: mild pain/ fever>100.5F) Qty: 90 0RF
pantoprazole 40 mg Tablet,Delayed Release (Dr/Ec)
40 mg PO BID Qty: 60 0RF
metoprolol succinate 25 mg Tablet Extended Release 24 Hr
25 mg PO DAILY Qty: 30 0RF
sertraline 25 mg Tablet
25 mg PO DAILY Qty: 30 0RF
bafdnmgsomha-uflgv-muvekyapvti Tablet
1 tab PO DAILY
gabapentin 300 mg capsule
600 mg PO TID
oxycodone 5 mg tablet
5 mg PO Q8H PRN (Reason: Mod sev pain) Qty: 15 0RF
Referrals:
Digna Burton DO [Family Provider] -
Fortino Forde MD [Active] -
Interventions
Interventions:
*Risk Screen - Suicide Last Done: 07/28/24 13:09
*General Assessment Last Done: 07/28/24 13:09
*Neglect/Abuse Screening Last Done: 07/28/24 13:09
ED- Fall Risk Assessment Last Done: 07/28/24 13:26
*ED COVID-19 Vaccine History Last Done: 07/28/24 13:26
*Nursing Disposition Last Done: 07/28/24 16:20
OM-Rvdfzg-Vdawrrkmfa Assessment Last Done: 07/28/24 13:26
Discharge Date and Time
Discharge Date/Time: 07/28/24 16:21
Print Language: KYRGYZ
[2024-07-28] MEDS: REGLAN 10 MG IV (13:53)
[2024-07-28 13:54] LABS: HCG, Serum Qualitative Screen Negative
[2024-07-28] MEDS: DILAUDID 0.5 MG IV ×2 (13:54→15:38)
[2024-07-28 13:58] LABS: AST (SGOT) 31 U/L (14-36); Albumin 5.7 g/dl (3.5-5.0); Alkaline Phosphatase 102 U/L (38-126); Blood Urea Nitrogen 12 mg/dl (7-17); Calcium 10.7 mg/dl (8.4-10.2); Carbon Dioxide 19 mmol/L (22-30); Chloride 99 mmol/L (98-107); Estimated Creatinine Clearance 99 ml/min; Glucose 197 mg/dl (70-99); Lipase 20 U/L (23-300); Potassium 4.5 mmol/L (3.5-5.1); Sodium 139 mmol/L (135-145); Total Bilirubin 1.1 mg/dl (0.2-1.3); Total Protein 8.4 g/dl (6.3-8.2); eGFR > 60.00
[2024-07-28 15:04] LABS: ALT (SGPT) 33 U/L (0-35)
[2024-07-28 16:18] VITALS: BP 129/73
== END 2024-07-28 16:21 | disposition home or self-care (01) ==
LOC: EMR 13:07
PROVIDERS: Physician Assistant; EMERGENCY PHYSICIAN Student in an Organized Health Care Education/Training Program; FAMILY PHYSICIAN Family Medicine
DX: R10.10 Upper abdominal pain, unspecified (principal); R11.2 Nausea with vomiting, unspecified; I45.81 Long QT syndrome; F41.9 Anxiety disorder, unspecified; F32.A Depression, unspecified; J45.909 Unspecified asthma, uncomplicated; F17.200 Nicotine dependence, unspecified, uncomplicated; Z87.19 Personal history of other diseases of the digestive system; Z87.820 Personal history of traumatic brain injury; F19.11 Other psychoactive substance abuse, in remission; Z88.8 Allergy status to other drugs, medicaments and biological substances
CPT/HCPCS: 99285; 96375; 96374; 96376; 74177; 80053; 83690; 84703; 85025; Q9967

== ENCOUNTER 2024-09-16 18:27 | Inpatient (IN) | payer OTHER, SELFPAY ==
[2024-09-16 14:59] VITALS: BP 162/108
[2024-09-16 15:15] VITALS: BMI 28.5
--- NOTE | 2024-09-16 15:18 | ED.GENMED ---
History of Present Illness
General
Chief Complaint: Abdominal Pain
Source: patient
Exam Limitations: none
Time Seen by Provider: 09/16/24 15:10
Nursing documentation reviewed up to this point in time: agreed with
History of Present Illness
History of Present Illness:
Patient to ED with complaint of upper abdomen, left abdomen pain. +n/v/d. Symptoms started this AM. History of necrotizing pancreatitis. Symptoms today are similar but she states pain is much worse. Brought self to ED for eval.
Past History
Past History
ED Past Medical History: Arrthythmia (Torsades), Asthma, Psychiatric (Anxiety, Depression) and Other (Concussion, Pancreatitis, history of Substance abuse, )
ED Past Surgical History: Gynecological () and Other (Pancreatic stent)
Social History
Tobacco: Smoker
Alcohol: None
Drug: Marijuana
Personal: Single
Living: with family
Phy Exam
General Physical Exam
General Presentation: moderate distress
General age: appears stated age
General Skin: warm and dry
General Habitus: normal
General Mental: alert
Cardiovascular Exam
Cardiovascular Exam: regular rate/rhythm and no edema
Pulmonary Exam
Pulmonary Exam: no respiratory distress and chest non tender
Gastrointestinal Exam
Gastrointestinal Exam: normal bowel sounds, no cva tenderness and guarding
Palpation: left upper quadrant: Severe tenderness, left lower quadrant: Moderate tenderness, right upper quadrant: Severe tenderness and right lower quadrant: No tenderness
Musculoskeletal Exam
Musculoskeletal Exam: full ROM and neuro vasc intact
Skin Exam
Skin Exam: normal color, warm/dry and no rash
Psychiatric Exam
Psychiatric Exam: normal mood/affect
Course
Orders/Labs/Results
Orders:
Orders
09/16/24 Dinner
NPO
Allow oral meds: Yes
Allow clear liquids: Sips of Clears
09/16/24 15:16
HYDROmorphone [Dilaudid] 0.5 mg IV NOW STA
Prochlorperazine [Compazine] 10 mg IV NOW STA
Test Result ONCE
09/16/24 15:17
CT Abd/pelvis W Iv Cont Urgent
Comment:
Reason For Exam: upper abd, left abd pain, n/v
0.9% Sodium Chloride 1000 ml [Nss] 1,000 ml IV BOLUS
09/16/24 15:23
Complete Blood Count/With Diff Urgent
Comprehensive Metabolic Panel Urgent
HCG, Serum Qualitative Screen Urgent
Lipase Urgent
Urinalysis Reflex To Culture Urgent
Date Specimen was Collected: 09/16/24
Time Specimen was Collected: 15:18
Urine Microscopic Reflex Cult Urgent
09/16/24 16:50
HYDROmorphone [Dilaudid] 0.5 mg IV NOW STA
09/16/24 18:04
Admit/Transfer Patient As Directed
Co-Sign Provider:
Level of Care: Inpatient admission
Assign to:: Medical/Surgical
Physician / Group: kindra sullivan
Diagnosis: pancreatitis
Reason for Hospitalization: pancreatitis
Expected length of stay greater than two midnights?: Yes
ELOS- Estimated Length of Stay in days: 2
I certify the patient meets the requirements for IP care: Yes
GASTROINTESTINAL CONSULT Routine
Consulting Provider: Tess Sullivan
Was physician already notified: Yes
PRN Pain Medication Management As Directed
May give lesser potent ordered pain med per pt: Yes
preference::
Protocol:: Medication orders for pain may be administered in a
manner that supports deferring to patient preference
when the pt is:
- Requesting an ordered lesser potent pain medication.
Least to most potent pain medications are defined
as: acetaminophen < NSAID < tramadol < opioids
(morphine, oxycodone, hydromorphone).
- Requesting a lesser dose of the same medication IF
ORDERED.
- Requesting a less intrusive route of administration
if both routes are prescribed by the provider (PO <
IV).
09/16/24 18:06
Code Status As Directed
Resuscitation Status: Full Code
09/16/24 18:37
HYDROmorphone [Dilaudid] 0.5 mg IV Q4HPRN PRN
09/16/24 18:40
Ketorolac [Toradol] 30 mg IV Q6HPRN PRN
09/16/24 19:22
0.9% Sodium Chloride 1000 ml [Nss] 1,000 ml IV 150 mls/hr
Acetaminophen [Tylenol] 650 mg PO Q6HPRN PRN
Ondansetron Injectable [Zofran] 4 mg IV Q6HPRN PRN
09/16/24 19:22
Activity As Directed
Activity Level: Ambulate
Pneumatic Compression Sleeves As Directed
Type: Knee high
Vital Signs As Directed
Frequency: Per unit guidelines
DX Deep Vein Thrombosis Video Routine
09/16/24 20:00
Pantoprazole [Protonix] 40 mg PO BID
09/16/24 22:00
Doxepin [Sinequan] 50 mg PO HS
Gabapentin [Neurontin] 600 mg PO TID
HydrOXYZINE [Atarax] 50 mg PO QID
Melatonin 10 mg PO HS
09/17/24 06:00
EKG [Electrocardiogram (*1)] IN AM
Reason for Study: QTc Monitoring
Basic Metabolic Panel IN AM
Complete Blood Count/No Diff IN AM
Lipase IN AM
Magnesium IN AM
Phos [Phosphorus] IN AM
09/17/24 07:30
Sucralfate [Carafate] 1 gram PO AC
09/17/24 08:00
Metoprolol Xl [Toprol Xl] 25 mg PO DAILY
Sertraline HCl [Zoloft] 100 mg PO DAILY
cariprazine [Vraylar] 1.5 mg PO DAILY
09/18/24 06:00
Basic Metabolic Panel IN AM
Complete Blood Count/No Diff IN AM
09/19/24 06:00
Basic Metabolic Panel IN AM
Complete Blood Count/No Diff IN AM
Abnormal Lab Results
09/16/24
15:23
RBC 4.11 L 10^6/uL
(4.20-5.40)
Hct 36.9 L %
(37.0-47.0)
Chloride 97 L mmol/L
(98-107)
Glucose 166 H mg/dl
(70-99)
AST 45 H U/L
(14-36)
Lipase 316 H U/L
(23-300)
Ur Occult Blood Reflex 1+ A
(Negative)
Urine RBC 3-6 A /HPF
(0-2)
Urine Bacteria (Reflex) Few A
(Negative)
09/16/24 15:23
09/16/24 15:23
Vital Signs
Initial and Last Documented VS:
Initial Vital Signs
Temp Pulse Resp Pulse Ox
98.0 F 78 18 98
09/16/24 14:56 09/16/24 14:56 09/16/24 14:56 09/16/24 14:56
Last Documented Vital Signs
Temp Pulse Resp BP Pulse Ox
98.4 F 82 18 153/105 97
09/16/24 20:15 09/16/24 20:15 09/16/24 20:15 09/16/24 20:15 09/16/24 20:15
MDM/Problems Addressed
Differential Diagnosis Includes:
Patient to ED with severe upper and left abdominal pain. Pain started this AM. SHe has a history of pancreatitis and states pain is much worse but similar. +n/v. Afebrile. Labs reviewed. Lipase [address] = acute interstitial pancreatitis
of tail. Continues with severe upper abdominal pain. Left abdominal pain improved after IV Dilaudid. WIll admit to hospitialist service
*Radiology
Radiology exam reviewed: radiology read reviewed
*Pulse Oximetry
Patient hypoxic: no
*Critical Care Note
Total Time (30-74mins, 75-104mins- exclusive of procedures): Not Applicable
ED Attending Note
-
Portions of this chart may have been created with voice recognition software.� Occasional wrong word or��sound alike� substitutions may have occurred due to the inherent limitations of voice recognition software.
Discharge Plan
Departure
Patient Disposition: Admit
Date of Disposition: 09/16/24
Time of Disposition: 16:54
Presentation/result/management discussed w/ accepting MD/DO: Hospitalist
Patient with high blood pressure during this ER visit?: No
Condition: Fair
Covid-19: Not Applicable
Discharge Problem:
Interstitial pancreatitis
Interventions
Interventions:
*Risk Screen - Suicide Last Done: 09/16/24 19:26
*General Assessment Last Done: 09/16/24 15:16
*Neglect/Abuse Screening Last Done: 09/16/24 15:16
*ED COVID-19 Vaccine History Last Done: 09/16/24 15:16
*Nursing Disposition Last Done: 09/16/24 19:30
GZ-Pnroqw-Rgexrokxos Assessment Last Done: 09/16/24 15:17
Discharge Date and Time
Discharge Date/Time: 09/16/24 19:30
[2024-09-16] MEDS: COMPAZINE 10 MG IV (15:24)
[2024-09-16] MEDS: DILAUDID 0.5 MG IV ×4 (15:24→23:35)
[2024-09-16] MEDS: NSS 1000 IV ×2 (15:25→22:10)
[2024-09-16 15:26] VITALS: BP 180/107
[2024-09-16 15:40] LABS: % Basophils 0.5 % (0-2); % Eosinophils 0.8 % (0-6); % Immature Granulocytes 0.4 % (0-0.5); % Lymphocytes 21.5 % (20.5-51.1); % Neutrophils 71.8 % (42.2-75.2); Absolute Eosinophils 0.1 10^3/uL (0-0.7); Absolute Lymphocytes 1.6 10^3/uL (1.2-3.4); Absolute Monocytes 0.4 10^3/uL (0.1-0.6); Absolute Neutrophils 5.4 10^3/uL (1.4-6.5); Hematocrit 36.9 % (37.0-47.0); Hemoglobin 12.5 g/dL (12.0-16.0); Mean Corp Hgb Conc. 33.9 g/dL (33.0-37.0); Mean Corpuscular Hgb 30.4 pg (27.0-31.0); Mean Corpuscular Volume 89.8 fL (81.0-99.0); Mean Platelet Volume 10.3 fL (7.4-10.4); Nucleated Red Blood Cells % 0 %; Platelet Count 184 10^3/uL (130-400); Red Blood Cell Count 4.11 10^6/uL (4.20-5.40); Red Cell Dist. Width 12.8 % (11.5-14.5); White Blood Cell Count 7.5 10^3/uL (4.8-10.8)
[2024-09-16 15:46] LABS: Urine Albumin Negative (Neg - Trace); Urine Bilirubin Negative (Negative); Urine Character Clear (Clear); Urine Color Yellow; Urine Glucose Negative (Negative); Urine Ketone Negative (Negative); Urine Leukocyte Negative (Negative); Urine Nitrite Negative (Negative); Urine Occult Blood 1+ (Negative); Urine Urobilinogen Negative (Neg - 1+)
[2024-09-16 15:54] LABS: ALT (SGPT) 29 U/L (0-35); AST (SGOT) 45 U/L (14-36); Alkaline Phosphatase 93 U/L (38-126); Blood Urea Nitrogen 9 mg/dl (7-17); Calcium 9.6 mg/dl (8.4-10.2); Carbon Dioxide 23 mmol/L (22-30); Chloride 97 mmol/L (98-107); Estimated Creatinine Clearance 101 ml/min; Glucose 166 mg/dl (70-99); Potassium 4.4 mmol/L (3.5-5.1); Sodium 136 mmol/L (135-145); Total Bilirubin 0.4 mg/dl (0.2-1.3); Total Protein 7.5 g/dl (6.3-8.2); eGFR > 60.00
[2024-09-16 16:00] VITALS: BP 152/98
[2024-09-16 16:00] LABS: HCG, Serum Qualitative Screen Negative
[2024-09-16 16:02] LABS: Urine Bacteria Few (Negative); Urine White Cell 0-2 /HPF (0-5)
[2024-09-16 16:04] LABS: Lipase 316 U/L (23-300)
[2024-09-16 17:00] VITALS: BP 155/112
--- NOTE | 2024-09-16 17:53 | HPS.HSE ---
Family Physician
-
Family Physician: Digna Burton
Chief Complaint
-
Abd pain, N/V
History of Present Illness
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 Forde, h/o DVT 2/2 PICC line s/p Xarelto, HTN, & GERD who presents with a 1 day history of nausea, vomiting,
and abdominal pain. Patient states that the pain is located in her epigastric/left upper quadrant region, and it is severe in intensity, 10 out of 10. She reports associated nausea, vomiting. She reports alcohol cessation for 1 year. Denies
chest pain, denies shortness of breath. No fever. No lightheadedness, no dizziness. No dysuria. No black or bloody stools. She reports loose stools, had 3 bowel movements today.
Medical History
Past Medical History
Past Medical History: Reports Other
Additional Past Medical History:
Essential HTN, neuropathy, GERD, anxiety/depression, necrotizing pancreatitis with pancreatic duct stenting, alcohol abuse, marijuana use, h/o DVT
Past Surgical History: Reports Other (D&C, PD stent placement with removal)
Social History
Tobacco: Former Smoker
Alcohol: Former
Drug: Marijuana
Family History
Family History: Not pertinent
Allergies / Home Medications
Allergies reflects when Allergies were last updated in [facility].
Home Medications with original date entered in [facility]
Allergy/Medication List:
Allergies
Allergy/AdvReac Type Severity Reaction Status Date / Time
No Known Allergies Allergy Verified 04/22/24 13:49
Home Medications
acetaminophen 325 mg tablet 650 mg (2 x 325 mg) PO Q6HPRN PRN mild pain/ fever>100.5F #90 tabs 06/24/23
magnesium oxide 500 mg PO DAILY #30 tabs 06/24/23
metoprolol succinate 25 mg tablet,extended release 24 hr 25 mg PO DAILY #30 tabs 06/24/23
pantoprazole 40 mg tablet,delayed release 40 mg PO BID #60 tabs 06/24/23
sertraline 25 mg tablet 25 mg PO DAILY #30 tabs 08/08/23
gabapentin 300 mg capsule 600 mg PO TID 04/22/24
azryccpotftf-cawiu-ftqdmbrsdmz tablet 1 tab PO 04/22/24
Review of Systems
-
A 12 point ROS was completed and negative except as noted: Yes
Physical Exam
Vital Signs
Vital Signs
Temp Pulse Resp BP Pulse Ox
98.0 F 92 14 152/98 97
09/16/24 14:56 09/16/24 16:45 09/16/24 16:45 09/16/24 16:00 09/16/24 16:45
Physical Exam
General: No Apparent Distress
HEENT: NormoCephalic, Anicteric, Moist mucous membranes and Atraumatic
Respiratory: Clear
Cardiac: S1/S2 and Regular Rhythm
GI: Soft, Normal Bowel Sounds, Tender and Distended
Musculoskeletal: No Clubbing, No Cyanosis and No Edema
Skin: Warm and Dry
Neuro: Awake, Alert and Oriented
Psych: Calm
Laboratory Results
-
09/16/24 15:23
09/16/24 15:23
Laboratory Results
Total Bilirubin 0.4 mg/dl (0.2-1.3) 09/16/24 15:23
AST 45 U/L (14-36) H 09/16/24 15:23
ALT 29 U/L (0-35) 09/16/24 15:23
Alkaline Phosphatase 93 U/L (38-126) 09/16/24 15:23
Lipase 316 U/L (23-300) H 09/16/24 15:23
Impression/Plan
-
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 Forde, h/o DVT 2/2 PICC line s/p Xarelto, HTN, & GERD who presents with a 1 day history of nausea,
vomiting, and abdominal pain. Patient states that the pain is located in her epigastric/left upper quadrant region, and it is severe in intensity, 10 out of 10. She reports associated nausea, vomiting. She reports alcohol cessation for 1 year.
Denies chest pain, denies shortness of breath. No fever. No lightheadedness, no dizziness. No dysuria. No black or bloody stools. She reports loose stools, had 3 bowel movements today.
#Acute pancreatitis
#History of pancreatic duct stenting followed by removal by Dr. Forde March 2024
CT of the abdomen and pelvis shows peripancreatic edema and fat stranding around the tail of the pancreas compatible with acute interstitial edematous pancreatitis
Lipase unremarkable at 316, reports quitting drinking 1 year ago
Consult GI, n.p.o., IV fluids, antiemetics, pain control
#Former alcohol use
Reports quitting 1 year ago
#Dormer smoker
Reports quitting 4 months ago
#Depression/anxiety
Continue SSRI, hydroxyzine, melatonin
#Essential hypertension
Continue metoprolol succinate 25 mg daily
#GERD
Continue pantoprazole 40 mg twice daily, Carafate 1 g AC
#Neuropathy
Continue gabapentin
DVT prophylaxis�SCDs
Full code
Total time spent to see the patient on the floor, examine the patient, review data and lab results, discuss treatment plan with patient, nursing staff around 55 minutes.
--- NOTE | 2024-09-16 20:04 | PTCARENOTE ---
Patient admitted from the ED 09/16/24. Patient got into room by walking. .. Patient orientation times 3, can state needs. Call wynn within reach. Patient on npo diet.Complaints of pain in the middle of the left side of the abdomen 05/05. Will
continue with current plan.
[2024-09-16 20:15] VITALS: BP 153/105
[2024-09-16] MEDS: PROTONIX 40 MG PO (22:11)
[2024-09-16] MEDS: MELATONIN 10 MG PO (22:12)
[2024-09-16] MEDS: ATARAX 50 MG PO (22:12)
[2024-09-16] MEDS: NEURONTIN 600 MG PO (22:13)
[2024-09-16] MEDS: SINEQUAN 50 MG PO (22:13)
[2024-09-16] MEDS: TORADOL 30 MG IV (22:14)
[2024-09-16 23:50] VITALS: BP 165/108
[2024-09-17 00:23] VITALS: BP 150/108
[2024-09-17] MEDS: TYLENOL 650 MG PO ×2 (03:19→09:52)
[2024-09-17] MEDS: DILAUDID 0.5 MG IV ×2 (03:47→07:28)
[2024-09-17] MEDS: TORADOL 30 MG IV ×4 (04:31→21:24)
[2024-09-17] MEDS: NSS 1000 IV ×3 (04:32→18:45)
[2024-09-17 07:18] VITALS: BP 198/125
[2024-09-17] MEDS: NEURONTIN 600 MG PO ×3 (07:27→21:16)
[2024-09-17] MEDS: PROTONIX 40 MG PO ×2 (07:27→21:15)
[2024-09-17] MEDS: TOPROL XL 25 MG PO (07:28)
[2024-09-17] MEDS: ZOLOFT 100 MG PO (07:28)
[2024-09-17] MEDS: CARAFATE 1 GRAM PO (07:28)
[2024-09-17] MEDS: ATARAX 50 MG PO ×4 (07:28→21:17)
[2024-09-17 07:57] LABS: Hematocrit 36.9 % (37.0-47.0); Hemoglobin 12.5 g/dL (12.0-16.0); Mean Corp Hgb Conc. 33.9 g/dL (33.0-37.0); Mean Corpuscular Hgb 30.8 pg (27.0-31.0); Mean Corpuscular Volume 90.9 fL (81.0-99.0); Mean Platelet Volume 10.5 fL (7.4-10.4); Platelet Count 154 10^3/uL (130-400); Red Blood Cell Count 4.06 10^6/uL (4.20-5.40); Red Cell Dist. Width 12.9 % (11.5-14.5); White Blood Cell Count 10.5 10^3/uL (4.8-10.8)
[2024-09-17 08:39] LABS: Blood Urea Nitrogen 11 mg/dl (7-17); Calcium 8.9 mg/dl (8.4-10.2); Carbon Dioxide 22 mmol/L (22-30); Chloride 103 mmol/L (98-107); Estimated Creatinine Clearance 101 ml/min; Glucose 131 mg/dl (70-99); Lipase 702 U/L (23-300); Magnesium 1.7 mg/dl (1.6-2.3); Phosphorus 2.7 mg/dl (2.5-4.5); Sodium 139 mmol/L (135-145); eGFR > 60.00
--- NOTE | 2024-09-17 08:48 | W.PN.HOSP.TC ---
Today's Communication/Plan
-
see bold
Assessment / Plan
Assessment / Plan
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 Forde, h/o DVT 2/2 PICC line s/p Xarelto, HTN, & GERD who presents with a 1 day history of nausea,
vomiting, and abdominal pain. Patient states that the pain is located in her epigastric/left upper quadrant region, and it is severe in intensity, 10 out of 10. She reports associated nausea, vomiting. She reports alcohol cessation for 1 year.
Denies chest pain, denies shortness of breath. No fever. No lightheadedness, no dizziness. No dysuria. No black or bloody stools. She reports loose stools, had 3 bowel movements today.
#Acute pancreatitis
#History of pancreatic duct stenting followed by removal by Dr. Forde March [address]
CT of the abdomen and pelvis shows peripancreatic edema and fat stranding around the tail of the pancreas compatible with acute interstitial edematous pancreatitis
Lipase 702, was 316, reports quitting drinking 1 year ago. TG 379
Cancel GI consult, continue IV fluids, antiemetics, pain control
Sips of clears as tolerated
#Hypertensive urgency
Secondary to pain, will treat pain
Will also start lisinopril 20 mg daily, and clonidine 0.1 mg twice daily
Continue Toprol XL 25 mg daily
#Former alcohol use
Reports quitting 1 year ago
#Dormer smoker
Reports quitting 4 months ago
#Depression/anxiety
Continue SSRI, hydroxyzine, melatonin
#GERD
Continue pantoprazole 40 mg twice daily, Carafate 1 g AC
#Neuropathy
Continue gabapentin
DVT prophylaxis�SCDs
Full code
Total time spent to see the patient on the floor, examine the patient, review data and lab results, discuss treatment plan with patient, nursing staff around 45 minutes.
Physical Exam
General: Appears in pain, no acute distress
HEENT: Normocephalic, Atraumatic, EOMI, MMM
Respiratory: Clear to Auscultation bilaterally
Cardiac: Normal S1/S2, Regular Rate and Rhythm
GI: Soft, tender at the epigastrium/LUQ, Nondistended, Normal Bowel Sounds
Extremities: No Clubbing, Cyanosis, or Edema
Neuro: Nonfocal/Grossly Intact
Psych: Calm, Cooperative
Derm: No Visible lesions
Anticipated Discharge: 24 - 48 hours
Subjective/Interval History
-
Date of Service: September 17, 2024
Patient's abdominal pain has worsened. It is 10 out of 10 in intensity. She is nauseous, no vomiting. No fever.
Objective Data
-
Labs:
Laboratory Results
09/17/24
07:25
WBC 10.5
Hgb 12.5
Hct 36.9 L
Plt Count 154
Sodium 139
Potassium 4.0
Chloride 103
Carbon Dioxide 22
BUN 11
Creatinine 0.7
Glucose 131 H
Calcium 8.9
Vital Signs:
Vital Signs
Temp Pulse Resp BP Pulse Ox
98 F 61 18 198/125 98
09/17/24 07:18 09/17/24 07:18 09/17/24 07:18 09/17/24 07:18 09/17/24 07:18
I&O
09/16/24 09/17/24 09/18/24
06:59 06:59 06:59
Intake Total 1350 / 1350
Balance 1350 / 1350
[2024-09-17] MEDS: ZESTRIL 20 MG PO (09:52)
[2024-09-17] MEDS: CATAPRES 0.1 MG PO ×2 (09:52→21:16)
[2024-09-17] MEDS: REGLAN 10 MG IV (10:08)
[2024-09-17] MEDS: DILAUDID 1 MG IV ×4 (10:08→19:34)
[2024-09-17 10:52] LABS: Triglycerides 379 mg/dl (10-149)
--- NOTE | 2024-09-17 11:17 | CM ---
CM reviewed chart, patient seen bedside, initial assessment completed. Patient resides with family in a multiple story home. Patient is independent with ADLs/IADLs, denies VN/SNF history. Patient PCP Digna Burton, [facility] in
[place]. Patient confirms prescription coverage, denies insecurities at home. CM will continue to follow for all discharge planning needs.
Plan; home with family when stable, likely no needs.
[2024-09-17] MEDS: CARAFATE PO ×2 (11:59→16:20)
[2024-09-17] MEDS: ProAIR HFA INHALER 2 PUFF INH (12:20)
[2024-09-17 15:00] VITALS: BP 171/106
[2024-09-17 18:28] VITALS: BP 168/109
[2024-09-17] MEDS: APRESOLINE 10 MG IV (18:45)
[2024-09-17] MEDS: SINEQUAN 50 MG PO (21:16)
[2024-09-17] MEDS: MELATONIN 10 MG PO (21:17)
--- NOTE | 2024-09-17 21:30 | PTCARENOTE ---
Pt. noted swelling on right corner of eye, no redness, itching or pain, lower eye lid becoming swollen also, notified HODAN Langston, ordered Benadryl and Pepcid IV, will continue to monitor.
[2024-09-17] MEDS: BENADRYL 25 MG IV (22:34)
[2024-09-17] MEDS: PEPCID 20 MG IV (22:35)
[2024-09-17] MEDS: NSS (PRESERVATIVE FREE) 8 ML IV (22:36)
[2024-09-17 23:24] VITALS: BP 140/93
[2024-09-18] MEDS: DILAUDID 1 MG IV ×7 (00:11→19:55)
[2024-09-18] MEDS: NSS 1000 IV ×4 (00:12→23:01)
--- NOTE | 2024-09-18 00:15 | W.PN.UPDATE ---
Update Note
Progress Note Update
2199 asked to eval pt for new right sided orbital swelling
Eval at bedside pt AAox3. Vitals WNL (bp high). No respiratory distress. She states around change of shift she noted some right sided eyelid edema and also edema inner corner or right eye. Then started to increase.
Denies pain. Denies itching.
On exam right eyelid and inner corner of eye with edema. Possible allergic reaction to new med today. Last new med received around change of shift is hydralazine. She received this at 1845. After this is when she noted swelling.
Will dc hydralazine. treat with benadryl and pepcid iv. Ice pack to eye prn.
[2024-09-18] MEDS: TORADOL 30 MG IV ×3 (04:39→17:36)
[2024-09-18 07:00] VITALS: BP 139/80
[2024-09-18 07:24] LABS: Hematocrit 31.6 % (37.0-47.0); Hemoglobin 10.6 g/dL (12.0-16.0); Mean Corp Hgb Conc. 33.5 g/dL (33.0-37.0); Mean Corpuscular Hgb 31.4 pg (27.0-31.0); Mean Corpuscular Volume 93.5 fL (81.0-99.0); Mean Platelet Volume 11.1 fL (7.4-10.4); Platelet Count 129 10^3/uL (130-400); Red Blood Cell Count 3.38 10^6/uL (4.20-5.40); White Blood Cell Count 8.3 10^3/uL (4.8-10.8)
[2024-09-18 08:05] LABS: Blood Urea Nitrogen 6 mg/dl (7-17); Calcium 8.6 mg/dl (8.4-10.2); Carbon Dioxide 25 mmol/L (22-30); Chloride 103 mmol/L (98-107); Estimated Creatinine Clearance 118 ml/min; Glucose 122 mg/dl (70-99); Lipase 993 U/L (23-300); Potassium 3.6 mmol/L (3.5-5.1); Sodium 137 mmol/L (135-145); eGFR > 60.00
[2024-09-18] MEDS: NEURONTIN 600 MG PO ×3 (08:25→22:52)
[2024-09-18] MEDS: ZESTRIL PO (08:27)
[2024-09-18] MEDS: PROTONIX 40 MG PO ×2 (08:27→19:57)
[2024-09-18] MEDS: ATARAX 50 MG PO ×4 (08:27→22:52)
[2024-09-18] MEDS: TOPROL XL 25 MG PO (08:27)
[2024-09-18] MEDS: ZOLOFT 100 MG PO (08:27)
[2024-09-18] MEDS: CARAFATE 1 GRAM PO ×2 (08:27→12:47)
[2024-09-18] MEDS: CATAPRES 0.1 MG PO ×2 (08:27→19:57)
[2024-09-18] MEDS: TYLENOL 650 MG PO (08:37)
--- NOTE | 2024-09-18 11:42 | CM ---
CM reviewed chart, patient seen bedside. Patient reports no needs to CM at this time. CM will continue to follow for all discharge planning needs.
Plan; home no needs when stable.
--- NOTE | 2024-09-18 15:09 | W.PN.HOSP.TC ---
Today's Communication/Plan
-
see bold
Assessment / Plan
Assessment / Plan
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 Forde, h/o DVT 2/2 PICC line s/p Xarelto, HTN, & GERD who presents with a 1 day history of nausea,
vomiting, and abdominal pain. Patient states that the pain is located in her epigastric/left upper quadrant region, and it is severe in intensity, 10 out of 10. She reports associated nausea, vomiting. She reports alcohol cessation for 1 year.
Denies chest pain, denies shortness of breath. No fever. No lightheadedness, no dizziness. No dysuria. No black or bloody stools. She reports loose stools, had 3 bowel movements today.
#Acute pancreatitis
#History of pancreatic duct stenting followed by removal by Dr. Forde March [address]
CT of the abdomen and pelvis shows peripancreatic edema and fat stranding around the tail of the pancreas compatible with acute interstitial edematous pancreatitis
Lipase 702, was 316, reports quitting drinking 1 year ago. TG 379
Continue IV fluids, antiemetics, pain control
Sips of clears as tolerated
#Hypertensive urgency
Secondary to pain, will treat pain
Started lisinopril 20 mg daily, and clonidine 0.1 mg twice daily
Continue Toprol XL 25 mg daily
#Right eye swelling
Occurring after IV hydralazine, which has been discontinued
Status post Benadryl and Pepcid, continue supportive care
#Former alcohol use
Reports quitting 1 year ago
#Dormer smoker
Reports quitting 4 months ago
#Depression/anxiety
Continue SSRI, hydroxyzine, melatonin
#GERD
Continue pantoprazole 40 mg twice daily, Carafate 1 g AC
#Neuropathy
Continue gabapentin
DVT prophylaxis�SCDs
Full code
Total time spent to see the patient on the floor, examine the patient, review data and lab results, discuss treatment plan with patient, nursing staff around 40 minutes.
Physical Exam
General: Appears in pain, no acute distress
HEENT: Normocephalic, Atraumatic, EOMI, MMM
Respiratory: Clear to Auscultation bilaterally
Cardiac: Normal S1/S2, Regular Rate and Rhythm
GI: Soft, tender at the epigastrium/LUQ, Nondistended, Normal Bowel Sounds
Extremities: No Clubbing, Cyanosis, or Edema
Neuro: Nonfocal/Grossly Intact
Psych: Calm, Cooperative
Derm: No Visible lesions
Anticipated Discharge: 24 - 48 hours
Subjective/Interval History
-
Date of Service: September 18, 2024
Patient continues to have severe abdominal pain. She is intermittently nauseous, no vomiting. No fever.
Objective Data
-
Labs:
Laboratory Results
09/18/24
06:36
WBC 8.3
Hgb 10.6 L
Hct 31.6 L
Plt Count 129 L
Sodium 137
Potassium 3.6
Chloride 103
Carbon Dioxide 25
BUN 6 L
Creatinine 0.6
Glucose 122 H
Calcium 8.6
Vital Signs:
Vital Signs
Temp Pulse Resp BP Pulse Ox
98 F 100 20 139/80 98
09/18/24 07:00 09/18/24 07:00 09/18/24 07:00 09/18/24 07:00 09/18/24 07:00
I&O
09/17/24 09/18/24 09/19/24
06:59 06:59 06:59
Intake Total 1350 / 1350 1000 / 1000 1130 / 1130
Balance 1350 / 1350 1000 / 1000 1130 / 1130
[2024-09-18 15:33] VITALS: BP 149/90
[2024-09-18] MEDS: CARAFATE PO (15:54)
--- NOTE | 2024-09-18 18:12 | PTCARENOTE ---
IV Dilaudid and Toradol given without relief, reached out to day MD and warehouse distribution associate hospitalist for additional pain medications if appropriate
--- NOTE | 2024-09-18 19:28 | PTCARENOTE ---
reached out to overnight provider to see if patient could get a one time Dilaudid dose for now, as she is still in 08/05 pain
[2024-09-18] MEDS: MYLICON 80 MG PO (20:06)
[2024-09-18] MEDS: SINEQUAN 50 MG PO (22:52)
[2024-09-18] MEDS: MELATONIN 10 MG PO (22:52)
[2024-09-18] MEDS: DILAUDID 1.5 MG IV (22:54)
[2024-09-18 23:19] VITALS: BP 140/86
[2024-09-19] MEDS: NSS IV (01:18)
[2024-09-19] MEDS: DILAUDID 1.5 MG IV ×3 (02:40→08:44)
[2024-09-19] MEDS: TORADOL 30 MG IV ×2 (04:07→13:53)
[2024-09-19] MEDS: NSS 1000 IV ×5 (05:46→22:19)
[2024-09-19 07:14] LABS: Hematocrit 28.9 % (37.0-47.0); Hemoglobin 9.5 g/dL (12.0-16.0); Mean Corp Hgb Conc. 32.9 g/dL (33.0-37.0); Mean Corpuscular Hgb 30.8 pg (27.0-31.0); Mean Corpuscular Volume 93.8 fL (81.0-99.0); Mean Platelet Volume 10.8 fL (7.4-10.4); Platelet Count 131 10^3/uL (130-400); Red Blood Cell Count 3.08 10^6/uL (4.20-5.40); Red Cell Dist. Width 12.9 % (11.5-14.5); White Blood Cell Count 7.3 10^3/uL (4.8-10.8)
[2024-09-19 07:37] LABS: Blood Urea Nitrogen 3 mg/dl (7-17); Calcium 8.7 mg/dl (8.4-10.2); Carbon Dioxide 25 mmol/L (22-30); Chloride 107 mmol/L (98-107); Estimated Creatinine Clearance 118 ml/min; Glucose 104 mg/dl (70-99); Lipase 268 U/L (23-300); Potassium 4.2 mmol/L (3.5-5.1); Sodium 140 mmol/L (135-145); eGFR > 60.00
[2024-09-19 07:53] VITALS: BP 104/64
[2024-09-19] MEDS: ATARAX 50 MG PO ×4 (08:40→21:43)
[2024-09-19] MEDS: CARAFATE 1 GRAM PO ×2 (08:40→15:47)
[2024-09-19] MEDS: CATAPRES PO (08:41)
[2024-09-19] MEDS: PROTONIX 40 MG PO ×2 (08:41→19:45)
[2024-09-19] MEDS: TOPROL XL 25 MG PO (08:42)
[2024-09-19] MEDS: NEURONTIN 600 MG PO ×3 (08:42→21:43)
[2024-09-19] MEDS: ZESTRIL PO (08:43)
[2024-09-19] MEDS: ZOLOFT 100 MG PO (08:43)
--- NOTE | 2024-09-19 08:50 | W.PN.HOSP.TC ---
Today's Communication/Plan
-
see bold
Assessment / Plan
Assessment / Plan
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 Forde, h/o DVT 2/2 PICC line s/p Xarelto, HTN, & GERD who presents with a 1 day history of nausea,
vomiting, and abdominal pain. Patient states that the pain is located in her epigastric/left upper quadrant region, and it is severe in intensity, 10 out of 10. She reports associated nausea, vomiting. She reports alcohol cessation for 1 year.
Denies chest pain, denies shortness of breath. No fever. No lightheadedness, no dizziness. No dysuria. No black or bloody stools. She reports loose stools, had 3 bowel movements today.
#Acute pancreatitis
#History of pancreatic duct stenting followed by removal by Dr. Forde March [address]
CT of the abdomen and pelvis shows peripancreatic edema and fat stranding around the tail of the pancreas compatible with acute interstitial edematous pancreatitis
Lipase 268, was 993, 702, was 316, reports quitting drinking 1 year ago. TG 379
Continue IV fluids, antiemetics, pain control
Sips of clears as tolerated
#Hypertensive urgency
Resolved with treatment of pain
Continue Toprol XL 25 mg daily, clonidine 0.1 mg 3 times daily as needed
#Right eye swelling
Occurring after IV hydralazine, which has been discontinued
Status post Benadryl and Pepcid, continue supportive care
#Former alcohol use
Reports quitting 1 year ago
#Dormer smoker
Reports quitting 4 months ago
#Depression/anxiety
Continue SSRI, hydroxyzine, melatonin
#GERD
Continue pantoprazole 40 mg twice daily, Carafate 1 g AC
#Neuropathy
Continue gabapentin
DVT prophylaxis�SCDs
Full code
Total time spent to see the patient on the floor, examine the patient, review data and lab results, discuss treatment plan with patient, nursing staff around 35 minutes.
Physical Exam
General: Appears in pain, no acute distress
HEENT: Normocephalic, Atraumatic, EOMI, MMM
Respiratory: Clear to Auscultation bilaterally
Cardiac: Normal S1/S2, Regular Rate and Rhythm
GI: Soft, tender at the epigastrium/LUQ, Nondistended, Normal Bowel Sounds
Extremities: No Clubbing, Cyanosis, or Edema
Neuro: Nonfocal/Grossly Intact
Psych: Calm, Cooperative
Derm: No Visible lesions
Anticipated Discharge: 24 - 48 hours
Subjective/Interval History
-
Date of Service: September 19, 2024
Patient's abdominal pain is improved. It is 6 out of 10 in intensity. No fever, no vomiting. No chest pain, no shortness of breath.
Objective Data
-
Labs:
Laboratory Results
09/19/24
07:01
WBC 7.3
Hgb 9.5 L
Hct 28.9 L
Plt Count 131
Sodium 140
Potassium 4.2
Chloride 107
Carbon Dioxide 25
BUN 3 L
Creatinine 0.6
Glucose 104 H
Calcium 8.7
Vital Signs:
Vital Signs
Temp Pulse Resp BP Pulse Ox
97.6 F 78 18 104/64 96
09/19/24 07:53 09/19/24 07:53 09/19/24 07:53 09/19/24 07:53 09/19/24 07:53
I&O
09/18/24 09/19/24 09/20/24
06:59 06:59 06:59
Intake Total 1000 / 1000 3620 / 3620
Balance 1000 / 1000 0 / 3620
[2024-09-19] MEDS: ProAIR HFA INHALER 2 PUFF INH ×2 (11:04→22:25)
[2024-09-19] MEDS: CARAFATE PO (11:59)
--- NOTE | 2024-09-19 12:23 | CM ---
CM reviewed chart, patient seen bedside, reports no concerns to CM. CM will continue to follow for all discharge planning needs.
Plan; home no needs anticipated.
[2024-09-19] MEDS: DILAUDID 1 MG IV ×4 (12:26→21:42)
[2024-09-19 15:55] VITALS: BP 132/88
[2024-09-19] MEDS: SINEQUAN 50 MG PO (21:42)
[2024-09-19] MEDS: MELATONIN 10 MG PO (21:44)
[2024-09-19 23:31] VITALS: BP 134/80
[2024-09-20] MEDS: DILAUDID 1 MG IV ×3 (00:42→06:30)
[2024-09-20] MEDS: TORADOL 30 MG IV ×2 (01:40→21:23)
[2024-09-20] MEDS: NSS 1000 IV (03:27)
--- NOTE | 2024-09-20 06:32 | VATNOTE ---
LUE FROM FINGERTIPS TO ABOVE ELBOW NOTED TO BE SWOLLEN, CONFIRMED BY PT. IV NOT REMOVED DUE TO INFILTRATION. PT REPORTS HX OF RUE DVT. PCN MADE AWARE. PT AND PCN TO MENTION TO PROVIDER TODAY TO CONSIDER AN US TO R/O DVT.
[2024-09-20 07:58] VITALS: BP 188/111
[2024-09-20 08:41] LABS: Lipase 92 U/L (23-300)
--- NOTE | 2024-09-20 09:20 | VATNOTE ---
Vat rounds assessed generalized edema noted from bilat. upper arm and lower extremities. Primary Rn made aware.
--- NOTE | 2024-09-20 09:31 | W.PN.HOSP.TC ---
Today's Communication/Plan
-
Stop IV fluids
Stop IV Dilaudid
Oxycodone as needed
Advance diet as tolerated
Assessment / Plan
Assessment / Plan
Gen-AAOx3, NAD
HEENT-NC, AT, anicteric, clear oral mm
Neck-supple
CV-reg, no M, +S1/S2
Lungs-clear B/L
Abd-soft, NT, ND
Ext-no edema
Musculoskeletal-no cyanosis, clubbing
Skin-warm and dry
Neuro-grossly non-focal
Psych-calm, cooperative
Acute pancreatitis - improving. Advance diet to full liquids, goal of low-fat as tolerated.
History of pancreatic duct stenting followed by removal by Dr. Forde March [address]
CT of the abdomen and pelvis shows peripancreatic edema and fat stranding around the tail of the pancreas compatible with acute interstitial edematous pancreatitis
Lipase 268, was 993, 702, was 316, reports quitting drinking 1 year ago. TG 379
Stop further IV fluids given pulmonary edema, anasarca. Has received 14 L of IV fluid so far this admission.
Stop IV Dilaudid, use oxycodone as needed. Continue as needed Toradol.
Hypertensive urgency -blood pressure elevated this morning likely due to volume overload from IV fluids.
#Right eye swelling
Occurring after IV hydralazine, which has been discontinued
Status post Benadryl and Pepcid, continue supportive care
#Former alcohol use
Reports quitting 1 year ago
Former smoker
Reports quitting 4 months ago
#Depression/anxiety
Continue SSRI, hydroxyzine, melatonin
#GERD
Continue pantoprazole 40 mg twice daily, Carafate 1 g AC
#Neuropathy
Continue gabapentin
DVT prophylaxis�SCDs
Full code
Anticipated Discharge: Within 24 hours
Subjective/Interval History
-
Date of Service: September 20, 2024
Patient seen and examined. Complaining of swelling of extremities, abdomen, shortness of breath.
Objective Data
-
Vital Signs:
Vital Signs
Temp Pulse Resp BP Pulse Ox
97.4 F 89 18 188/111 96
09/20/24 07:58 09/20/24 07:58 09/20/24 07:58 09/20/24 07:58 09/20/24 07:58
I&O
09/19/24 09/20/24 09/21/24
06:59 06:59 06:59
Intake Total 3620 / 3620 3120 / 3120
Balance 3620 / 3620 3120 / 3120
Review of Systems
-
History Source: Patient
All other systems: Reviewed and negative
[2024-09-20] MEDS: NEURONTIN 600 MG PO ×3 (09:43→21:23)
[2024-09-20] MEDS: PROTONIX 40 MG PO ×2 (09:43→19:23)
[2024-09-20] MEDS: CARAFATE 1 GRAM PO ×3 (09:43→16:33)
[2024-09-20] MEDS: ZOLOFT 100 MG PO (09:43)
[2024-09-20] MEDS: LASIX 20 MG IV (09:44)
[2024-09-20] MEDS: TOPROL XL 25 MG PO (09:44)
[2024-09-20] MEDS: ATARAX 50 MG PO ×4 (09:47→21:25)
[2024-09-20] MEDS: ROXICODONE 10 MG PO ×4 (09:51→23:44)
[2024-09-20] MEDS: DUONEB 3 ML INH (10:09)
[2024-09-20] MEDS: NSS IV (10:20)
--- NOTE | 2024-09-20 10:26 | CM ---
Patient seen bedside. No Home care needs anticpated.
Plan: home no needs.
[2024-09-20 15:50] VITALS: BP 163/108
[2024-09-20] MEDS: PROCARDIA XL (EXTENDED RELEASE) 30 MG PO (16:32)
[2024-09-20] MEDS: BENADRYL 25 MG IV (19:34)
[2024-09-20] MEDS: TYLENOL 650 MG PO (21:22)
[2024-09-20] MEDS: SINEQUAN 50 MG PO (21:24)
[2024-09-20] MEDS: MELATONIN 10 MG PO (21:24)
[2024-09-20 23:47] VITALS: BP 136/92
[2024-09-21] MEDS: ROXICODONE 10 MG PO ×2 (04:25→09:26)
[2024-09-21] MEDS: CARAFATE 1 GRAM PO ×2 (07:36→12:06)
[2024-09-21] MEDS: NEURONTIN 600 MG PO (07:36)
[2024-09-21] MEDS: TOPROL XL 25 MG PO (07:36)
[2024-09-21] MEDS: ZOLOFT 100 MG PO (07:37)
[2024-09-21] MEDS: PROTONIX 40 MG PO (07:37)
[2024-09-21] MEDS: ATARAX 50 MG PO ×2 (07:37→12:06)
[2024-09-21 07:55] VITALS: BP 160/100
[2024-09-21] MEDS: TORADOL 30 MG IV (08:22)
--- NOTE | 2024-09-21 09:42 | PN.CDI ---
CDI
- -
CDI:
Physician Documentation Request
Admit Date: 09/16/24 18:27
Dear Doctor Dc,
Please review the following and provide your response in the progress notes.
Clinical Indicators:
Laboratory Tests
09/16/24 09/17/24 09/18/24
15:23 07:25 06:36
Hgb 12.5 12.5 10.6 L
Hct 36.9 L 36.9 L 31.6 L
09/19/24
07:01
Hgb 9.5 L
Hct 28.9 L
Based on the above and your clinical assessment, please clarify the most likely condition/diagnosis evaluated, monitored and/or treated?
Acute blood loss anemia
Precipitous drop in hematocrit
Abnormal lab value, clinically insignificant
Other(please specify)
Use of terms such as suspected, likely, concern for, or probable (associated with a specific diagnosis that is being evaluated, monitored, or treated as if it exists) are acceptable and can be coded in the inpatient setting, when documented at the
time of discharge.
Thank you,
Sofia Chavez RN BSN CCDS
CDI Specialist
please contact via tiger text
Please use your independent medical judgment in providing your response.
--- NOTE | 2024-09-21 11:34 | W.PN.HOSP.TC ---
Addendum entered and electronically signed by Esequiel Irwin DO 09/21/24 15:01:
Acute anemia noted. Suspect due to hemodilution from IV fluid administration. No evidence of bleeding.
Original Note:
Today's Communication/Plan
-
Discharge
Assessment / Plan
Assessment / Plan
Gen-AAOx3, NAD
HEENT-NC, AT, anicteric, clear oral mm
Neck-supple
CV-reg, no M, +S1/S2
Lungs-clear B/L
Abd-soft, NT, ND
Ext-no edema
Musculoskeletal-no cyanosis, clubbing
Skin-warm and dry
Neuro-grossly non-focal
Psych-calm, cooperative
Acute pancreatitis - improving. Tolerating solid food. Can discharge on low-fat diet.
History of pancreatic duct stenting followed by removal by Dr. Forde March [address]
CT of the abdomen and pelvis shows peripancreatic edema and fat stranding around the tail of the pancreas compatible with acute interstitial edematous pancreatitis
Lipase 268, was 993, 702, was 316, reports quitting drinking 1 year ago. TG 379
Can discharge on as needed oxycodone.
Recommend close follow-up with PCP and gastroenterology. She has an appointment to see Dr. Forde in January, I sent a [facility] text to the GI service to see if they can move up the appointment to an earlier date.
Essential hypertension/hypertensive urgency -continue metoprolol. Patient states nifedipine caused a rash. However, she tolerates amlodipine and has 10 mg tablets at home. Was only taking it as needed. Discussed importance of taking amlodipine
on a daily basis, start checking blood pressures at home, follow-up closely with PCP.
Right eye swelling
Occurring after IV hydralazine, which has been discontinued
Status post Benadryl and Pepcid, continue supportive care
#Former alcohol use
Reports quitting 1 year ago
Former smoker
Reports quitting 4 months ago
#Depression/anxiety
Continue SSRI, hydroxyzine, melatonin
#GERD
Continue pantoprazole 40 mg twice daily, Carafate 1 g AC
#Neuropathy
Continue gabapentin
DVT prophylaxis�SCDs
Full code
Dispo - medically stable for discharge. Outpatient follow-up.
35 minutes spent in discharge process.
Anticipated Discharge: Today
Subjective/Interval History
-
Date of Service: September 21, 2024
Patient seen and examined. Overall feeling better, less abdominal pain.
Objective Data
-
Vital Signs:
Vital Signs
Temp Pulse Resp BP Pulse Ox
97.4 F 92 18 160/100 96
09/21/24 07:55 09/21/24 07:55 09/21/24 07:55 09/21/24 07:55 09/21/24 07:55
I&O
09/20/24 09/21/24 09/22/24
06:59 06:59 06:59
Intake Total 3120 / 3120 240 / 240
Balance 3120 / 3120 240 / 240
Review of Systems
-
History Source: Patient
All other systems: Reviewed and negative
--- NOTE | 2024-09-21 11:44 | W.DS.TRANS ---
DC Summary - Relationship Management Lead
-
Discharge Instructions:
Discharge Diagnosis/Procedures Acute pancreatitis
Diet Low Fat,Low Cholesterol
Activity As tolerated
Driving Restrictions As prior to admission
Bathing Restrictions None
Instructions:
Stand-Alone Forms:
Changes to Home Medications: No
Discharge Medications:
DC Medications w/original date entered in [employer]
acetaminophen 325 mg tablet 650 mg (2 x 325 mg) PO Q6HPRN PRN mild pain/ fever>100.5F #90 tabs 06/24/23
metoprolol succinate 25 mg tablet,extended release 24 hr 25 mg PO DAILY #30 tabs 06/24/23
pantoprazole 40 mg tablet,delayed release 40 mg PO BID #60 tabs 06/24/23
sucralfate 1 gram tablet (Carafate) 1 g PO AC #30 tabs 07/28/24
cariprazine 1.5 mg capsule (Vraylar) 1.5 mg PO DAILY 09/16/24
doxepin 50 mg capsule 50 mg PO HS 09/16/24
gabapentin 600 mg tablet 600 mg PO TID Neurological Condition 09/16/24
hydroxyzine pamoate 50 mg capsule 50 mg PO QID Allergies 09/16/24
melatonin 10 mg tablet 10 mg PO HS Sleep 09/16/24
sertraline 100 mg tablet 100 mg PO DAILY Mental Health/Anxiety 09/16/24
magnesium oxide 500 mg PO DAILY Supplement 09/17/24
albuterol sulfate 90 mcg/actuation aerosol inhaler 2 puff inhalation R Q4HPRN PRN shortness of breath/wheezing #0 grams 09/21/24
oxycodone 5 mg tablet 5 mg PO Q4HPRN PRN moderate pain #20 tabs 09/21/24
Home Medication Changes
Pending Results: No
[2024-09-21 12:41] VITALS: BP 148/75
== END 2024-09-21 12:49 | disposition home or self-care (01) | DRG 440 ==
LOC: 4 WEST ACU 18:27
PROVIDERS: Nurse Practitioner; ADMITTING PHYSICIAN Family Medicine; ATTENDING PHYSICIAN Hospitalist; EMERGENCY PHYSICIAN Emergency Medicine; FAMILY PHYSICIAN Family Medicine
DX: K85.90 Acute pancreatitis without necrosis or infection, unspecified (principal); F17.200 Nicotine dependence, unspecified, uncomplicated; F32.A Depression, unspecified; F41.9 Anxiety disorder, unspecified; I10 Essential (primary) hypertension; K21.9 Gastro-esophageal reflux disease without esophagitis; I16.0 Hypertensive urgency
CPT/HCPCS: 74177; 80048; 80053; 81003; 81015; 83690; 83735; 84100; 84478; 84703; 85025; 85027; 86140; 93005; 94640; 96361; 96374; 96375; 96376; 99285; 99406; Q9967